=== PATIENT | female | born 1995 | race Caucasian/White ===

== ENCOUNTER → 2019-09-14 16:47 | Outpatient (CLI) | payer OTHER, SELFPAY ==
[2019-09-14 17:54] LABS: hCG Titer Quant., Serum 298 mIU/mL (1-3)
== END ==
PROVIDERS: PCP Preventive Medicine Occupational Medicine; Referring Provider Obstetrics & Gynecology; Visit Provider Obstetrics & Gynecology
DX: N91.2 Amenorrhea, unspecified (principal)
CPT/HCPCS: 36415; 84702

== ENCOUNTER → 2019-09-17 09:38 | Outpatient (CLI) | payer OTHER, SELFPAY ==
[2019-09-17 11:02] LABS: hCG Titer Quant., Serum 1140 mIU/mL (1-3)
== END ==
PROVIDERS: PCP Preventive Medicine Occupational Medicine; Referring Provider Obstetrics & Gynecology; Visit Provider Obstetrics & Gynecology
DX: O20.0 Threatened abortion (principal); Z3A.00 Weeks of gestation of pregnancy not specified
CPT/HCPCS: 36415; 84702

== ENCOUNTER → 2019-10-08 | Outpatient (CLI) | payer OTHER, SELFPAY ==
[2019-10-08 14:30] VITALS: BMI 33.4
[2019-10-08 18:37] LABS: Amphetamine Urine VISTA NEGATIVE (<1000 ng/mL); Barbiturate Urine VISTA NEGATIVE (< 200 ng/mL); Benzodiazepine Urine VISTA NEGATIVE (< 200 ng/mL); Cocaine Urine VISTA NEGATIVE (< 300 ng/mL); Ecstacy Urine VISTA NEGATIVE (< 500 ng/mL); Methadone Urine VISTA NEGATIVE (< 300 ng/mL); PCP Urine VISTA NEGATIVE (< 25 ng/mL); THC Urine VISTA NEGATIVE (< 50 ng/mL); Vista UDS pH Range 6
[2019-10-08 21:12] LABS: Chlamydia Trachomatis by PCR Negative (Negative); Neisserai gonorrhoeae by PCR Negative (Negative); Probe Check PASS; Sample Adequacy Control PASS; Specimen Processing Control PASS
[2019-10-12 16:48] LABS: HPV Reflexed? NOT INDICATED
== END | disposition home or self-care (01) ==
PROVIDERS: PCP Preventive Medicine Occupational Medicine; Referring Provider Nurse Practitioner Women's Health; Visit Provider Nurse Practitioner Women's Health
DX: Z34.00 Encounter for supervision of normal first pregnancy, unspecified trimester (principal); Z12.4 Encounter for screening for malignant neoplasm of cervix
CPT/HCPCS: 80307; 87086; 87491; 87591; 88175; G0145

== ENCOUNTER → 2019-10-09 16:35 | Outpatient (CLI) | payer OTHER, SELFPAY ==
[2019-10-08 14:30] VITALS: BMI 33.4
--- NOTE | 2019-10-09 16:37 | US_ITS ---
STUDY: FIRST TRIMESTER OBSTETRICAL ULTRASOUND REASON FOR EXAM: Female, 23 years old VIABILITY/ dates LMP: 08/17/2019 TECHNIQUE: Transvaginal TECHNICAL QUALITY: Adequate. PRIOR ULTRASOUND: None. FINDINGS: There is visualization of a single gestational sac in a normal intrauterine position. The mean sac diameter (MSD) measures 2.68 cm, indicating an estimated gestational age (EGA) of 7 weeks, 6 days. The gestational sac shape is within normal limits. There is a visualized yolk sac. The yolk sac measures 3.6 mm. The placenta is non-visualized. There is visualization of a live embryo. The crown-rump length (CRL) measures 1.82 cm, indicating an estimated gestational age (EGA) of 8 weeks, 3 days. There is demonstrated cardiac activity with a heart rate of 157 bpm. The estimated gestation age (EGA) by LMP is 7 weeks, 4 days. The estimated date of delivery (CAR[place]) by LMP is 05/23/2020. The estimated gestation age (EGA) by US is 8 weeks, 3 days. The estimated date of delivery ([place]) by US is 05/19/2020. The uterus measures 7.9 x 6.4 x 4.4 cm. There is no demonstrated uterine fibroid. The cervix is closed. There is a hypoechoic focus adjacent to the gestational sac measuring 1.3 x 1.8 x 0.6 cm consistent with small subchorionic bleed. The right ovary measures 2.9 x 2.3 x 1.7 cm. There is a right ovarian cyst measuring 2.0 x 1.8 x 1.2 cm. There is no visualized right adnexal mass or complex lesion. The left ovary measures 2.7 x 1.8 x 1.4 cm.. There is no left ovarian cyst. There is no visualized left adnexal mass or complex lesion. There is no fluid in the cul de sac. US/Init OB < 14Wks US IMPRESSION: Single viable intrauterine of approximately 8 weeks 3 days gestational age by crown-rump length measurement. Hypoechoic focus adjacent to the gestational sac measuring 1.3 x 1.8 x 0.6 cm consistent with small subchorionic bleed. Right ovarian cyst measuring 2.0 x 1.8 x 1.2 cm consistent with a corpus luteal cyst. Electronically Signed: Omer Elias MD at 17:23 EDT , Service support ,
== END ==
PROVIDERS: PCP Preventive Medicine Occupational Medicine; Referring Provider Obstetrics & Gynecology; Visit Provider Obstetrics & Gynecology
DX: Z34.90 Encounter for supervision of normal pregnancy, unspecified, unspecified trimester (principal)
CPT/HCPCS: 76801

== ENCOUNTER → 2019-11-08 15:43 | Outpatient (CLI) | payer SELFPAY ==
[2019-11-08 15:09] VITALS: BMI 33.4
[2019-11-08 16:32] LABS: Absolute Lymphocyte Count 2.42 X10^3/uL (0.83-4.51); Absolute Neutrophil Count 7.7 X10^3/uL (2.0-7.7); Basophil# 0.03 X10^3/uL; Basophil% 0.3 % (0-1); Eosinophils% 1.8 % (0-5); Hematocrit 38.7 % (37-47); Lymphocyte # 2.42 X10^3/ul (4.0); Lymphocyte % 21.7 % (19-41); Mean Corp Hgb Conc 33.6 g/dL (32-36); Mean Corpuscular Hgb 32.1 pg (27.0-32.0); Mean Corpuscular Volume 95.6 fL (81-99); Mean Platelet Vol. 10.1 fl (6.2-12.0); Monocyte# 0.78 X10^3/uL; NRBC Flagged by Analyzer 0 % (0-5); Neutrophil # 7.66 X10^3/uL (2.7-7.7); Neutrophil % 68.8 % (47-70); Platelet Count 234 K/mm3 (150-450); RBC Distribution Width SD 42.6 fl (35.1-43.9); Red Blood Count 4.05 M/mm3 (4.2-5.4); White Blood Count 11.1 K/mm3 (4.4-11.0)
[2019-11-09 09:07] LABS: HIV - WCH Non-Reactive (Nonreactive); Hepatitis B Surface Antigen Non-Reactive (Nonreactive); Hepatitis C Antibody Non-Reactive (Nonreactive); Rubella IgG 390.2 IU/mL
[2019-11-15 00:51] LABS: Rapid Plasmin Reagin (RPR) NONREACTIVE (NONREACTIVE)
== END ==
PROVIDERS: Nurse Practitioner Women's Health; PCP Preventive Medicine Occupational Medicine; Referring Provider Obstetrics & Gynecology; Visit Provider Obstetrics & Gynecology
DX: Z34.81 Encounter for supervision of other normal pregnancy, first trimester (principal)
CPT/HCPCS: 85025; 86592; 86703; 86762; 86803; 86850; 86900; 86901; 87340

== ENCOUNTER → 2020-02-25 13:50 | Outpatient (CLI) | payer OTHER, SELFPAY ==
[2020-01-28 16:03] VITALS: BMI 33.4
[2020-02-25 14:53] LABS: Absolute Lymphocyte Count 2.35 X10^3/uL (0.83-4.51); Absolute Neutrophil Count 7.6 X10^3/uL (2.0-7.7); Basophil# 0.03 X10^3/uL; Basophil% 0.3 % (0-1); Eosinophil# 0.13 X10^3/uL; Eosinophils% 1.2 % (0-5); Hematocrit 37.2 % (37-47); Hemoglobin 12.5 g/dL (12.0-15.0); Lymphocyte # 2.35 X10^3/ul (4.0); Mean Corp Hgb Conc 33.6 g/dL (32-36); Mean Corpuscular Hgb 33.2 pg (27.0-32.0); Mean Corpuscular Volume 98.7 fL (81-99); Mean Platelet Vol. 10.9 fl (6.2-12.0); Monocyte# 0.49 X10^3/uL; Monocyte% 4.6 % (0-10); NRBC Flagged by Analyzer 0 % (0-5); Neutrophil # 7.62 X10^3/uL (2.7-7.7); Neutrophil % 71.2 % (47-70); Platelet Count 221 K/mm3 (150-450); RBC Distribution Width CV 12.4 % (11.6-14.6); RBC Distribution Width SD 44.4 fl (35.1-43.9); Red Blood Count 3.77 M/mm3 (4.2-5.4); White Blood Count 10.7 K/mm3 (4.4-11.0)
[2020-02-25 15:11] LABS: Glucose Challenge Gest 1H 50g 127 mg/dL (70-140)
== END ==
PROVIDERS: PCP Preventive Medicine Occupational Medicine; Referring Provider Nurse Practitioner Women's Health; Visit Provider Nurse Practitioner Women's Health
DX: Z34.01 Encounter for supervision of normal first pregnancy, first trimester (principal)
CPT/HCPCS: 36415; 82950; 85025

== ENCOUNTER → 2020-05-02 | Outpatient (CLI) | payer OTHER, SELFPAY ==
[2020-05-02 15:02] VITALS: BMI 38.7
== END | disposition home or self-care (01) ==
LOC: LABSPEC 16:52
PROVIDERS: PCP Preventive Medicine Occupational Medicine; Referring Provider Obstetrics & Gynecology; Visit Provider Obstetrics & Gynecology
DX: Z34.93 Encounter for supervision of normal pregnancy, unspecified, third trimester (principal); Z3A.36 36 weeks gestation of pregnancy
CPT/HCPCS: 87081

== ENCOUNTER 2020-05-12 11:05 | Outpatient (CLI) | payer OTHER, SELFPAY ==
[2020-05-09 13:30] VITALS: BMI 38.7
[2020-05-12 11:11] VITALS: TEMP 36.3
[2020-05-12 11:13] VITALS: BP 133/90; PULSE 97
[2020-05-12 11:19] VITALS: BMI 39.1
[2020-05-12 11:32] VITALS: BP 121/77; PULSE 84
[2020-05-12 12:05] LABS: ROM Internal Control Test YES-OK TO RESULT pt. (Internal QC); ROM Patient Test Negative (Negative)
[2020-05-12 12:21] VITALS: BP 125/80; PULSE 81
--- NOTE | 2020-05-12 12:55 | OB.TRI.PN_ITS ---
Progress Notes Date of Service: 05/12/20 Progress Note: Patient presents for triage evaluation secondary to questionable loss of fluid with vaginal discharge FHT: 140 moderate variability reactive no decelerations category I tracing [place]: no Regular contractions Assessment and plan: False labor no rupture of membranes negative ROM plus reactive NST, reassuring maternal and status patient discharged to home to follow-up as scheduled. See problem list details for additional plan information. Laboratory Studies: Laboratory Tests 05/12/20 Range/Units 11:31 Vag Amniotic Fld Detect Negative (Negative) - Problem List (1) Intact amniotic membranes Status: Acute Multi Select Codes - Urinary/Genital Urinary/Genital CPT Codes: 88935-40 non-stress test Interp
== END 2020-05-12 12:55 | disposition home or self-care (01) ==
LOC: WPOUT 11:07 → WP 11:07
PROVIDERS: PCP Preventive Medicine Occupational Medicine; Referring Provider Obstetrics & Gynecology; Visit Provider Obstetrics & Gynecology
DX: O47.9 False labor, unspecified (principal); Z3A.00 Weeks of gestation of pregnancy not specified
CPT/HCPCS: 59025; 59050; 84112; 99218; G0378

== ENCOUNTER → 2020-05-12 13:54 | Outpatient (CLI) | payer OTHER, SELFPAY ==
[2020-05-09 13:30] VITALS: BMI 38.7
[2020-05-12 11:19] VITALS: BMI 39.1
--- NOTE | 2020-05-12 13:56 | US_ITS ---
HISTORY: SMALL FOR DATES ADDITIONAL HISTORY: None provided. CLINICAL DATIN weeks 3 days with CAROLINA 05/23/2020 COMPARISON: None TECHNIQUE: Obstetric sonography performed with transabdominal approach, grayscale and color Doppler imaging. FINDINGS: NUMBER: 1 HEART RATE: 127 BPM PRESENTATION: Cephalic PLACENTA: Posterior. AMNIOTIC FLUID: Normal KARIE 13.69 cm CERVIX: Not visualized. BIOMETRY: BPD: 8.88 cm, 35 weeks 6 days HC: 31.94 cm, 35 weeks 6 days AC:32.9 cm, 36 weeks 5 days FL: 7.09 cm, 36 weeks 2 days AUA: 36 weeks 2 days CAR[place]: 06/07/2020 EFW: 2999 g, 63rd percentile CI 79% FL/AC 21.6% FL/BPD 79.8% FL/HC 22.2% HC/AC 0.97 Anatomy US/OB Limited With Biometrics IMPRESSION: Single, live intrauterine gestation, as detailed. at 0552 Reported and signed by: Tricia England MD Electronically Signed: Tricia England MD at 5:52 EDT Tel , Service support ,
== END ==
PROVIDERS: PCP Preventive Medicine Occupational Medicine; Referring Provider Obstetrics & Gynecology; Visit Provider Obstetrics & Gynecology
DX: O26.843 Uterine size-date discrepancy, third trimester (principal); Z3A.00 Weeks of gestation of pregnancy not specified
CPT/HCPCS: 76816

== ENCOUNTER 2020-05-15 04:56 | Inpatient (IN) | payer OTHER, SELFPAY ==
[2020-05-15] VITALS (45 sets, daily range): BP systolic 104–156; BP diastolic 56–94; PULSE 58–97; RESP 18; TEMP 36.3–37.2; O2SAT 96–99; BMI 38.0
[2020-05-15 04:54] LABS: ROM Internal Control Test YES-OK TO RESULT pt. (Internal QC)
[2020-05-15 04:55] LABS: ROM Patient Test POSITIVE (Negative)
[2020-05-15] MEDS: Lactated Ringers 1,000 ML 50 ML IV (05:40)
[2020-05-15 05:49] LABS: Absolute Lymphocyte Count 2.52 X10^3/uL (0.83-4.51); Absolute Neutrophil Count 7.1 X10^3/uL (2.0-7.7); Basophil# 0.03 X10^3/uL; Basophil% 0.3 % (0-1); Eosinophil# 0.17 X10^3/uL; Eosinophils% 1.6 % (0-5); Hematocrit 41.5 % (37-47); Lymphocyte # 2.52 X10^3/ul (4.0); Lymphocyte % 23.7 % (19-41); Mean Corp Hgb Conc 33.7 g/dL (32-36); Mean Corpuscular Hgb 33.5 pg (27.0-32.0); Mean Corpuscular Volume 99.3 fL (81-99); Mean Platelet Vol. 11.8 fl (6.2-12.0); Monocyte# 0.81 X10^3/uL; Monocyte% 7.6 % (0-10); NRBC Flagged by Analyzer 0 % (0-5); Neutrophil # 7.07 X10^3/uL (2.7-7.7); Neutrophil % 66.5 % (47-70); Platelet Count 174 K/mm3 (150-450); RBC Distribution Width CV 13.1 % (11.6-14.6); RBC Distribution Width SD 47.5 fl (35.1-43.9); Red Blood Count 4.18 M/mm3 (4.2-5.4); White Blood Count 10.6 K/mm3 (4.4-11.0)
[2020-05-15] MEDS: Oxytocin 30 units/NS 500 ml 30 UNITS/500 ML IV.SOLN IV (07:30)
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
[2020-05-15] MEDS: fentaNYL 100 MCG/2 ML Ampul IV (11:07)
[2020-05-15] MEDS: Lactated Ringers 500 ML 999 ML IV (12:51)
[2020-05-15] MEDS: fentaNYL-bupivacaine (epidural) 100 ML BAG EPIDURAL (13:27)
[2020-05-15] MEDS: Lactated Ringers 1,000 ML 200 ML IV (15:55)
[2020-05-15] MEDS: Oxytocin 30 units/NS 500 ml 30 UNITS/500 ML IV.SOLN 334 UNITS IV (17:19)
--- NOTE | 2020-05-15 17:30 | PCM.OPRPT ---
Problem List (1) PROM (premature rupture of membranes) Status: Acute (2) 36 weeks gestation of Status: Acute Comment: COVID TESTING ORDERD 05/01/2020sc (3) Anxiety Status: Acute Comment: encouraged counseling, had chest pain with zoloft, celexa prescribed. (4) Influenza vaccination declined Status: Acute (5) Intact amniotic membranes Status: Acute (6) Status: Acute Qualifiers: Comment: low risk NIPT female, decline carrier and ntd screening. Anatomy/Echo US normal. (7) Supervision of high-risk Status: Acute Comment: PRR [place] 05/23/20 girl Dyan Spouse Sanjay (8) Tobacco use Status: Acute Comment: encouraged cessation. (9) Uterine size-date discrepancy, third trimester Status: Acute Comment: growth us ordered Vaginal Delivery Maternal Presentation: Spontaneous Rupture of Membranes srom Amniotic Fluid Description: Clear Final [place]: 05/23/20 Gestational age: 38 Weeks and 6 Days Date of Procedure: 05/15/20 Pre-Operative Diagnosis: prom Post-Operative Diagnosis: same Surgery/ Procedure Performed: Spontaneous Vaginal Delivery Type of Anesthesia: Epidural Description of Procedure: Patient began pushing and delivered the head in the [CATRACHITA] presentation. The head was delivered atraumatically . The anterior and posterior shoulders delivered without complication followed by the rest of the infant and the infant was placed on the maternal abdomen. Delayed cord clamping was employed for approximately 60 seconds. Cord was clamped and cut and gentle traction was applied to the cord and the placenta delivered spontaneously immediately following it was noted to be intact with three-vessel cord. The perineum and vagina were inspected and noted to have a first-degree perineal laceration that was repaired in the usual fashion with 3-0 Vicryl Rapide. EBL was [100 cc]. Patient and infant tolerated delivery well. Presentation: CATRACHITA Placental Delivery Description: Spontaneous Placenta Disposition: [facility] Estimated Blood Loss: 100 Infant A gender: Female Episiotomy Description: None Laceration: Perineal Extension/lac, 1st degree Medications given after delivery: IV Pitocin Complications: None Multi Select Codes - Urinary/Genital Urinary/Genital CPT Codes: 48309 Vaginal Delivery [facility]
[2020-05-15] MEDS: 0.9% Saline Lock 10 ML Syringe IV (19:48)
[2020-05-16] VITALS (11 sets, daily range): BP systolic 112–131; BP diastolic 59–86; PULSE 65–86; RESP 15–18; TEMP 36.1–37.3
[2020-05-16] MEDS: Naproxen 250 MG Tablet 500 MG PO (04:13)
[2020-05-16] MEDS: Citalopram 20 MG Tablet PO (10:01)
[2020-05-16] MEDS: Prenatal Vits Tablet 1 TABLET PO (10:01)
[2020-05-16] MEDS: Acetaminophen 500 MG Tablet 1000 MG PO (10:03)
--- NOTE | 2020-05-16 12:37 | DCINST_ITS ---
Discharge Diet: No Restrictions Discharge Activity: Return to Normal Activity, May not drive while taking narcotic pain medications., May Shower May resume sexual activity in: 4-6 weeks Call your doctor if your incision/area has: Continuous Slow Oozing, Sudden Increased Bleeding, Increased Pain/ Swelling, Increased Redness, Foul Smelling Discharge Additional Instructions: If you experience any of the following, contact your healthcare provider. * Bleeding that soaks a pad every hour for 2 hours * Fever 100.4 or higher * Unrelieved incision or abdominal pain * Swelling, redness, discharge or bleeding from your incision or episiotomy site * Your incision begins to separate * Problems urinating (including inability to urinate or burning while urinating). * Visual changes * Severe headache * Flu-like symptoms * Pain or redness in one of both of your breasts * Pain, warmth, tenderness or swelling in your legs, especially the calf area * Frequent nausea and vomiting * Symptoms of depression or anxiety If you experience any of the following, call 911 or go to the nearest Emergency Room. * Chest pain * Problems breathing * Seizure activity * Partial or complete paralysis of a body part, slurred speech, weakness or drooping of the face, or a sudden inability to walk or hold your balance Allergies/Adverse Reactions: Allergies No Known Allergies Allergy (Verified 05/15/20 04:50) Medications to take at Discharge prenat.vits,barry,[id number] 1 tab PO DAILY 10/08/19 Citalopram [Celexa] 20 mg PO DAILY 05/12/20 Please Follow Up With: Florina Dao MD - [phone] When: Call to make an appointment with your doctor in 6 weeks. If you had elevated Blood pressure or 4th degree laceration you will need to be seen in 2 weeks. Primary Care Physician: Denny Miles DO [Primary Care Provider] - Test Results: Test results from this visit will be discussed in further detail at your follow- up appointment, if applicable.
--- NOTE | 2020-05-16 12:37 | PCM.PN.OB ---
Patient Problems: Active and Suspected Problems (Last Reviewed 05/09/20 @ 13:25 by Arti Montiel) Intact amniotic membranes (Acute) PROM (premature rupture of membranes) (Acute) Uterine size-date discrepancy, third trimester (Acute) growth us ordered 36 weeks gestation of (Acute) COVID TESTING ORDERD 05/01/2020sc Influenza vaccination declined (Acute) Anxiety (Acute) encouraged counseling, had chest pain with zoloft, celexa prescribed. Supervision of high-risk (Acute) PRR [place] 05/23/20 girl Dyan Spouse Sanjay Tobacco use (Acute) encouraged cessation. (Acute) low risk NIPT female, decline carrier and ntd screening. Anatomy/Echo US normal. Subjective: Patient doing well without complaints. Tolerating PO. Ambulating and voiding without difficulty. breast feeding well. Denies chest pain, shortness of breath, calf pain/swelling, fevers, chills, lightheadedness. - Physical Exam Vitals/I&O's: Vital Signs Temp Pulse Resp BP Pulse Ox 98 F 76 15 123/73 H 98 05/16/20 08:37 05/16/20 11:25 05/16/20 08:37 05/16/20 11:25 05/15/20 19:57 Oxygen Delivery Method Room Air Weight: 201 lb Body Mass Index (BMI) 38.0 Intake and Output for Last 24 Hours 05/14/20 05/15/20 05/16/20 23:59 23:59 23:59 Intake Total 3621.39 / 3621.39 Output Total 1000 / 1000 1000 / 1000 Balance 2621.39 / 2621.39 -1000 / -1000 General: Alert, Oriented x3 Current Medications Acetaminophen (Acetaminophen 500 Mg Tablet) 1,000 mg PO Q8H PRN PRN PRN Reason: Pain Score 1-3 Last Admin: 05/16/20 10:03 Dose: 1,000 mg Documented by: Bisacodyl (Bisacodyl 10 Mg Suppository) 10 mg RECTAL UD PRN PRN Reason: If no BM Citalopram Hydrobromide (Citalopram 20 Mg Tablet) 20 mg PO DAILY ANGIE Last Admin: 05/16/20 10:01 Dose: 20 mg Documented by: Dibucaine (Dibucaine 30 Gm Tube) 1 applic TOPICAL TID PRN PRN; Protocol PRN Reason: Discomfort Hydrocortisone (Hydrocortisone 2.5% Crm) 1 applic TOPICAL TID PRN PRN; Protocol PRN Reason: Discomfort Methylergonovine Maleate (Methylergonovine 0.2 Mg/Ml Ampul) 0.2 mg IM X1 PRN PRN Reason: Excess bleeding/uterine atony Naproxen (Naproxen 250 Mg Tablet) 500 mg PO Q8H PRN PRN PRN Reason: Pain Score 1-3 Last Admin: 05/16/20 04:13 Dose: 500 mg Documented by: Ondansetron HCl (Ondansetron 4 Mg/2 Ml Vial) 4 mg IV Q4H PRN PRN PRN Reason: Nausea Oxycodone HCl (Oxycodone 5 Mg Tablet) 5 - 10 mg PO Q4H PRN PRN PRN Reason: Pain Score 4-10 Multivit/Folic Acid/Iron ( Vits Tablet) 1 tablet PO DAILY@1200 ANGIE Last Admin: 05/16/20 10:01 Dose: 1 tablet Documented by: Senna/Docusate Sodium (Senna/Docusate Sodium 1 Tablet) 1 - 2 tablet PO DAILY PRN PRN PRN Reason: Constipation Simethicone (Simethicone 80 Mg Tablet) 80 mg PO PCHS PRN PRN Reason: Indigestion/Stomach pain Sodium Chloride (0.9% Saline Lock 10 Ml Syringe) 5 - 15 ml IV UD PRN PRN Reason: SALINE FLUSH Last Admin: 05/15/20 19:48 Dose: 10 ml Documented by: Medical Necessity - Tobacco Use Smoking Status: Current some day smoker Assessment/Plan All Active Problems (Last Reviewed 05/09/20 @ 13:25 by Arti Montiel) Intact amniotic membranes (Acute) PROM (premature rupture of membranes) (Acute) Uterine size-date discrepancy, third trimester (Acute) 36 weeks gestation of (Acute) Influenza vaccination declined (Acute) Anxiety (Acute) Supervision of high-risk (Acute) Tobacco use (Acute) (Acute) Subchorionic hematoma (Resolved) s/p PPD # 1 1. routine post delivery care 2. breast feeding- support given 3. rh positive 4. rubella immune
--- NOTE | 2020-05-16 12:37 | PCM.DCVAG ---
Discharge Diet: No Restrictions Discharge Activity: Return to Normal Activity, May not drive while taking narcotic pain medications., May Shower May resume sexual activity in: 4-6 weeks Call your doctor if your incision/area has: Continuous Slow Oozing, Sudden Increased Bleeding, Increased Pain/ Swelling, Increased Redness, Foul Smelling Discharge Additional Instructions: If you experience any of the following, contact your healthcare provider. Bleeding that soaks a pad every hour for 2 hours Fever 100.4 or higher Unrelieved incision or abdominal pain Swelling, redness, discharge or bleeding from your incision or episiotomy site Your incision begins to separate Problems urinating (including inability to urinate or burning while urinating). Visual changes Severe headache Flu-like symptoms Pain or redness in one of both of your breasts Pain, warmth, tenderness or swelling in your legs, especially the calf area Frequent nausea and vomiting Symptoms of depression or anxiety If you experience any of the following, call 911 or go to the nearest Emergency Room. Chest pain Problems breathing Seizure activity Partial or complete paralysis of a body part, slurred speech, weakness or drooping of the face, or a sudden inability to walk or hold your balance Allergies/Adverse Reactions: Allergies No Known Allergies Allergy (Verified 05/15/20 04:50) Medications to take at Discharge prenat.vits,barry,[id number] 1 tab PO DAILY 10/08/19 Citalopram [Celexa] 20 mg PO DAILY 05/12/20 Please Follow Up With: Florina Dao MD - [phone] When: Call to make an appointment with your doctor in 6 weeks. If you had elevated Blood pressure or 4th degree laceration you will need to be seen in 2 weeks. Primary Care Physician: Denny Miles DO [Primary Care Provider] - Test Results: Test results from this visit will be discussed in further detail at your follow-up appointment, if applicable.
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
== END 2020-05-16 19:40 | disposition home or self-care (01) | DRG 807 ==
LOC: WPOUT 04:58 → WP 04:58
PROVIDERS: Admitting Provider Obstetrics & Gynecology; PCP Preventive Medicine Occupational Medicine; Visit Provider Obstetrics & Gynecology
DX: O42.92 Full-term premature rupture of membranes, unspecified as to length of time between rupture and onset of labor (principal); Z37.0 Single live birth; O26.843 Uterine size-date discrepancy, third trimester; O70.0 First degree perineal laceration during delivery; O99.344 Other mental disorders complicating childbirth; F41.9 Anxiety disorder, unspecified; O99.334 Smoking (tobacco) complicating childbirth; F17.200 Nicotine dependence, unspecified, uncomplicated; Z3A.38 38 weeks gestation of pregnancy; Z28.21 Immunization not carried out because of patient refusal
CPT/HCPCS: 59025; 59050; 84112; 85025; 86850; 86900; 86901; 99218; J7120; A4216; G0378

== ENCOUNTER 2020-12-24 12:04 | Observation (INO) | payer OTHER, SELFPAY ==
[2020-07-03 16:04] VITALS: BMI 36.0
[2020-12-24] VITALS (12 sets, daily range): BP systolic 101–165; BP diastolic 62–95; PULSE 61–101; RESP 14–18; TEMP 36.1–36.7; O2SAT 96–100; BMI 34.5; BMI 37.5
[2020-12-24 12:29] LABS: Absolute Lymphocyte Count 3.08 X10^3/uL (0.83-4.51); Absolute Neutrophil Count 6.8 X10^3/uL (2.0-7.7); Basophil# 0.05 X10^3/uL; Basophil% 0.5 % (0-1); Eosinophil# 0.22 X10^3/uL; Hemoglobin 13.9 g/dL (12.0-15.0); Lymphocyte # 3.08 X10^3/ul (0.83-4.51); Lymphocyte % 28.5 % (19-41); Mean Corp Hgb Conc 33.1 g/dL (32-36); Mean Corpuscular Hgb 31.7 pg (27.0-32.0); Mean Corpuscular Volume 95.9 fL (81-99); Mean Platelet Vol. 10.9 fl (6.2-12.0); Monocyte# 0.59 X10^3/uL; Monocyte% 5.5 % (0-10); NRBC Flagged by Analyzer 0 % (0-5); Neutrophil # 6.82 X10^3/uL (2.7-7.7); Neutrophil % 63.1 % (47-70); Platelet Count 267 K/mm3 (150-450); RBC Distribution Width CV 12.1 % (11.6-14.6); RBC Distribution Width SD 43.2 fl (35.1-43.9); Red Blood Count 4.38 M/mm3 (4.2-5.4); White Blood Count 10.8 K/mm3 (4.4-11.0)
[2020-12-24] MEDS: 0.9% Normal Saline 1,000 ML 1000 ML IV (12:35)
[2020-12-24] MEDS: Morphine 4 MG/ML Syringe IV ×2 (12:36→15:02)
[2020-12-24] MEDS: Ondansetron 4 MG/2 ML Vial IV ×2 (12:36→15:07)
--- NOTE | 2020-12-24 12:43 | EDS_ITS ---
HPI HPI - GI History of Present Illness Chief Complaint: Abd Pain Narrative Narrative: Patient reports that she has had lower quadrant abdominal pain days ago. Is much worse today. Is a sharp pain that is 10-10 at worst 9-10 currently. Is worsened by sitting and bending over. Relieved by nothing. She has had nausea and poor appetite. No vomiting. She reports she had 1 episode of diarrhea. No blood in her stools or black tarry stools. No dysuria freque ncy. She finished her menstrual cycle 3 days ago. She denies any vaginal bleeding or discharge. PFSH PFSH Medical History Non-smoker Home Medications desogestrel 0.15 mg-ethinyl estradiol 0.03 mg tablet 1 tab PO QDAY #28 tab 07/03/20 [Rx Last Taken Unknown] Allergy/AdvReac Type Severity Reaction Status Date / Time No Known Allergies Allergy Verified 12/24/20 12:07 Family History Mother Diabetes Heart disease Grandfather Myocardial infarction Social History number of children: 0 current occupational status: employed current occupation: [employer] Smoking Status: Never smoker alcohol intake: never substance use type: does not use caffeine: Yes Type: coffee Number of servings: 2 seatbelt use: always do you feel safe at home: Yes 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[employer] ROS ED Constitutional Constitutional ED: Denies chills, fever(s) or sweats Eyes Eyes: Denies change in vision ENT ENT ED: Denies sore throat Cardiovascular Cardiovascular: Denies chest pain Respiratory/Chest Respiratory/Chest: Denies cough, dyspnea or dyspnea on exertion Gastrointestinal Gastrointestinal: Reports abdominal pain, diarrhea and nausea; Denies melena or vomiting Genitourinary Genitourinary ED: Denies dysuria or urinary frequency Musculoskeletal Musculoskeletal: Denies myalgias Integumentary Denies rash Neurologic Neurologic: Denies headache(s), paresthesias or weakness EXAM Physical Exam Const Vital Signs: 12/24/20 12:05 Temperature 98.1 F Temperature Source Temporal Pulse Rate 101 H Respiratory Rate 16 Blood Pressure 165/84 H Blood Pressure Mean 111 Pulse Ox 99 Oxygen Delivery Method Room Air Positive well nourished and well developed General Appearance ED: well developed HEENT Reports normocephalic and head/scalp atraumatic Eyes PERRL Neck no lymphadenopathy, supple and no JVD General: Negative for tenderness Resp normal respiratory effort and clear to auscultation bilaterally Cardio regular rate, regular rhythm and no murmurs GI normal to inspection, nondistended, normoactive bowel sounds and non-distended GI Narrative: Moderate to palpation the right lower quadrant. No guarding, rebound, or peritoneal signs. Auscultation: normoactive bowel sounds Palpation: soft Back/Spine Back/Spine Narrative: Nontender. Extremity General Extremety ED: Negative for edema or tenderness General Extremity: Negative for edema Neuro oriented x3, CN's II-XII intact bilaterally and no sensory deficits noted Sensorium / Orientation: alert Motor Exam: strength 5/5 throughout Psych mental status grossly normal Skin no rashes or lesions noted MDM MDM Lab Data Labs: Laboratory Results - last 24 hr 12/24/20 12/24/20 12/24/20 12:22 12:22 12:22 WBC 10.8 RBC 4.38 Hgb 13.9 Hct 42.0 MCV 95.9 MCH 31.7 MCHC 33.1 RDW Std Deviation 43.2 RDW Coeff of Nicholas 12.1 Plt Count 267 MPV 10.9 Immature Gran % (Auto) 0.400 Neut % (Auto) 63.1 Lymph % (Auto) 28.5 Dupage % (Auto) 5.5 Eos % (Auto) 2.0 Baso % (Auto) 0.5 Absolute Neuts (auto) 6.8 Absolute Lymphs (auto) 3.08 Nucleated RBC % 0 Sodium 136 Potassium 4.6 Chloride 104 Carbon Dioxide 24.0 Anion Gap 8 BUN 11 Creatinine 0.82 Estim Creat Clear Calc 77.76 Est GFR (MDRD) Af Amer 107 Est GFR (MDRD) Non-Af 89 BUN/Creatinine Ratio 13.4 Glucose 81 Calcium 9.6 Total Bilirubin 0.40 AST 36 ALT 25 Alkaline Phosphatase 77 Total Protein 8.3 H Albumin 3.7 Globulin 4.6 H Albumin/Globulin Ratio 0.8 L Serum , Qual NEGATIVE Radiography Diagnostic Testing: Radiology Impression Abdomen/Pelvis CT 12/24/20 13:50 IMPRESSION: Findings suggestive of thickening and slight dilatation of the appendix with increased markings in the surrounding peritoneal fat suggestive of appendicitis. Electronically Signed: Valeriano Cooper MD at 14:22 EDT , Service support , Treatment and Re-Evaluation Comments:: Emergency department course: Patient had an IV placed. She was given a liter normal saline. She was given morphine and Zofran IV. She is resting more comfortably. Patient was given a dose of Zosyn IV. Treatment plan: Patient will be discussed with Dr. Easley and admitted for further evaluation and treatment. Discharge Plan Triage Chief Complaint: Abd Pain ED Provider: Bryce Shin Dx/Rx/DC Orders Clinical Impression: Acute appendicitis Prescriptions: No Action desogestrel-ethinyl estradiol [Apri] 0.15-0.03 mg tablet 1 tab PO QDAY Qty: 28 RF: 12 Primary Care Provider: Denny Miles Referrals: Denny Miles DO [Primary Care Provider] -
[2020-12-24 12:54] LABS: ALB/GLOB Ratio 0.8 RATIO (0.9-2.4); AST(SGOT) 36 U/L (15-37); Alanine Aminotransfer ALT/SGPT 25 U/L (13-56); Albumin, Serum 3.7 g/dL (3.2-5.0); Alkaline Phosphatase 77 U/L (45-117); Anion Gap 8 (5-15); BUN 11 mg/dL (7-18); BUN/Creat Ratio 13.4 RATIO (10-20); Calcium,Total 9.6 mg/dL (8.5-10.1); Chloride 104 mmol/L (98-107); Creatinine, Serum 0.82 mg/dL (0.55-1.02); EST Glomerular Filtration Rate 89 mL/min (>60); Est Glom Filt Rate - Afr Amer 107 mL/min (>60); Estimated Creatinine Clearance 77.76 ml/min; Globulin 4.6 g/dL (2.2-4.2); Glucose 81 mg/dL (74-106); Potassium 4.6 mmol/L (3.5-5.1); Protein, Total 8.3 g/dL (6.4-8.2); Sodium Level 136 mmol/L (136-145)
[2020-12-24 12:56] LABS: Internal QC Validated? YES +Cl - CLEAR BKGD; Pregnancy, Serum, hCG Quali. NEGATIVE Negative
--- NOTE | 2020-12-24 13:50 | CT_ITS ---
STUDY: CT ABDOMEN AND PELVIS WITH CONTRAST REASON FOR EXAM: Female, 25 years old. RLQ pain -- IV PO Contrast RADIATION DOSAGE (If Supplied By Facility): CTDIvol = ( 17.86 ) mGy, DLP = ( 1015.21 ) mGycm TECHNIQUE: Transaxial images were obtained from the dome of the diaphragm to the symphysis pubis without oral contrast. Oral and amp; IV Gastrografin and amp; 100mL Isovue-300 was administered. Sagittal and coronal images were reconstructed. Individualized dose optimization techniques were used for this CT. COMPARISON: None. FINDINGS: The visualized lung bases are unremarkable. The visualized portions of the heart are within normal limits. Normal liver. Normal gallbladder and extrahepatic biliary system. Normal spleen. Normal pancreas. Normal bilateral adrenal glands. Normal right kidney. Normal left kidney. Normal visualized stomach. Normal small intestine. Normal colon. There is a tubular, thick-walled appendix (>7mm), consistent with acute appendicitis. Small lymph nodes are seen in the mesenteric fat in the right lower quadrant suggest mesenteric ischemia. Normal abdominal aorta. Normal inferior vena cava. Normal retroperitoneum. Normal urinary bladder. Trace amount of free fluid is seen in the cul-de-sac. Normal abdominal wall. Normal osseous structures. CT/Abdomen/Pelvis WITH Contrast IMPRESSION: Findings suggestive of thickening and slight dilatation of the appendix with increased markings in the surrounding peritoneal fat suggestive of appendicitis. Electronically Signed: Valeriano Cooper MD at 14:22 EDT , Service support ,
--- NOTE | 2020-12-24 14:58 | PCM.HP.STD ---
HPI - General HPI Narrative JILL BUSTILLO, is a 25 F who presents to the ER due to right lower quadrant pain. Patient states she did have some discomfort that woke her up Tuesday morning. However patient states the pain got a lot worse at 9 AM this morning in the right lower quadrant and continues to get worse. Patient has had nausea and vomiting did have some looser stools. Patient has never had any abdominal surgeries. CT abdomen pelvis did show thickened appendix along with some inflammation or around the appendix consistent with acute appendicitis. Patient's white blood cell count is within normal limits. Patient did get Zosyn IV in the ER. [facility] Medical History Non-smoker Home Medications desogestrel 0.15 mg-ethinyl estradiol 0.03 mg tablet 1 tab PO QDAY #28 tab 07/03/20 [Rx Last Taken Unknown] Allergy/AdvReac Type Severity Reaction Status Date / Time No Known Allergies Allergy Verified 12/24/20 12:07 Family History Mother Diabetes Heart disease Grandfather Myocardial infarction no surgical history Social History number of children: 0 current occupational status: employed current occupation: [employer] Smoking Status: Never smoker alcohol intake: never substance use type: does not use caffeine: Yes Type: coffee Number of servings: 2 seatbelt use: always do you feel safe at home: Yes 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 [employer] Vital Signs Vital Signs Vital Signs: 12/24/20 12:05 Temperature 98.1 F Temperature Source Temporal Pulse Rate 101 H Respiratory Rate 16 Blood Pressure 165/84 H Blood Pressure Mean 111 Pulse Ox 99 Oxygen Delivery Method Room Air Weight Weight: 183 lb Body Mass Index (BMI) 34.5 Physical Exam Const alert, oriented x3 and no apparent distress HEENT normocephalic and head/scalp atraumatic Resp normal respiratory effort Cardio regular rate GI soft to palpation; Negative for non-distended Palpation: tender RLQ and other Other Details: Mild Rovsing sign ; Negative for guarding Extremity no clubbing, cyanosis or edema Neuro CN's II-XII intact bilaterally Psych mental status grossly normal Lab / Micro Data Result Diagrams: 12/24/20 12:22 12/24/20 12:22 Labs: Laboratory Results - last 24 hr 12/24/20 12/24/20 12/24/20 12:22 12:22 12:22 WBC 10.8 RBC 4.38 Hgb 13.9 Hct 42.0 MCV 95.9 MCH 31.7 MCHC 33.1 RDW Std Deviation 43.2 RDW Coeff of Nicholas 12.1 Plt Count 267 MPV 10.9 Immature Gran % (Auto) 0.400 Neut % (Auto) 63.1 Lymph % (Auto) 28.5 Storey % (Auto) 5.5 Eos % (Auto) 2.0 Baso % (Auto) 0.5 Absolute Neuts (auto) 6.8 Absolute Lymphs (auto) 3.08 Nucleated RBC % 0 Sodium 136 Potassium 4.6 Chloride 104 Carbon Dioxide 24.0 Anion Gap 8 BUN 11 Creatinine 0.82 Estim Creat Clear Calc 77.76 Est GFR (MDRD) Af Amer 107 Est GFR (MDRD) Non-Af 89 BUN/Creatinine Ratio 13.4 Glucose 81 Calcium 9.6 Total Bilirubin 0.40 AST 36 ALT 25 Alkaline Phosphatase 77 Total Protein 8.3 H Albumin 3.7 Globulin 4.6 H Albumin/Globulin Ratio 0.8 L Serum , Qual NEGATIVE Radiology Impression Abdomen/Pelvis CT 12/24/20 13:50 IMPRESSION: Findings suggestive of thickening and slight dilatation of the appendix with increased markings in the surrounding peritoneal fat suggestive of appendicitis. Electronically Signed: Valeriano Cooper MD at 14:22 EDT , Service support , Assessment & Plan Assessment/Plan (1) Acute appendicitis: PLAN: 1. Discussed procedure laparoscopic appendectomy, possible open, possible bowel resection along with the risk but not limited to bleeding, infection/abscess, injury to another organ (small bowel, colon, etc.), adhesion, hernia at incision sites, and anesthesia. Patient and her no further questions this time. Anais Easley M.D. Pager: [phone] [facility] [address] [place] [address], [address] [place] [id number] Office: [phone] Procedure Criteria Type of Procedure Procedure Type: Elective Elective Risks - COVID COVID Risk Discussion: The surgeon/proceduralist and patient have discussed in detail the risk of exposure to and/or potential harm posed by the COVID-19 virus with having a surgery/procedure at this time versus the risk of delaying the surgery/procedure. It is not possible to know either the risk of delaying the surgery or procedure or chance of getting an infection with perfect accuracy, but a joint decision was made between the patient and the surgeon/proceduralist to proceed at this time with the scheduled surgery/procedure as indicated on the consent form.
[2020-12-24] MEDS: 0.9% Normal Saline 1,000 ML 120 ML IV ×2 (15:45→17:38)
--- NOTE | 2020-12-24 16:00 | APP_PTH ---
PATIENT: JILL BUSTILLO LOC: [facility] U#:[id number] AGE/SX: 25/F ROOM: [facility] RE12/24/[address]: Dr. Anais Easley MD : 1995 BED: 1 DIS: 12/25/2020 SPEC #: [id number] RECD: 12/25/20 10:22 STATUS: STEFFEN REQ #: [id number] SARA: 12/24/20 16:[address]: Anais Easley DEPT: SURGICAL PATHOLOGY RECD BY: Denies Corral ENTERED: 12/25/20 11:06 SP TYPE: APPENDIX OTHR DR: Dr. Denny Miles, DO Tissues: Appendix, NOS Procedures: Surgery Specimen Level III HEADER OPERATION: Laparoscopic appendectomy PRE-OP DIAGNOSIS: Acute appendicitis TISSUE SUBMITTED: Appendix MICROSCOPIC DIAGNOSIS Appendix, appendectomy: Acute appendicitis and periappendicitis. See comment. SELENA:pk 12/26/2020 COMMENT Focal minimal diverticular changes are also noted at the tip of the appendix. MICROSCOPIC DESCRIPTION Slides are reviewed. GROSS DESCRIPTION Received in fixative is one container labeled with the patient's name and designated appendix. The specimen consists of a C-shaped appendix measuring 8 cm in length and up to 1 cm in diameter. The attached periappendiceal adipose tissue measures up to 1.5 cm in width. The serosa is congested. No obvious perforation is identified. The lumen contains fecal material. No fecalith is identified. Technical Supervisor sections are submitted in one cassette. / SJ:rg 12/25/20 TC:2 [facility]: [id number]
[2020-12-24] MEDS: Bupivacaine Mpf 0.5% 30 ML VIAL (16:09)
--- NOTE | 2020-12-24 16:53 | OP.PCM_ITS ---
Report of Operation Date of Procedure: 12/24/20 Pre-Operative Diagnosis: Acute appendicitis Post-Operative Diagnosis: Same Surgery/Procedure Performed:: Laparoscopic appendectomy Surgeon: Anais Easley Type of Anesthesia: General/Supplemental Anesthesiologist: Garcia Perez Special Medications: Zosyn IV given in ER for acute appendicitis Estimated Blood Loss (mL): < 10 cc Fluids Replaced: Per anesthesia Description of Procedure: Indications: 25-year-old female presented to the ER wi th new increase right lower quadrant pain this morning. On workup she was found to have acute appendicitis on CT and a leukocytosis of 10.8. Patient was started on antibiotics in the ER for acute appendicitis-Zosyn IV Description of the procedure: The patient was placed on operating table in supine position. General anesthesia was induced. A timeout was completed verifying correct patient, procedure, position and special equipment prior to beginning procedure. Abdomen was prepped and draped in usual sterile fashion. Incision was made in the natural skin line above the umbilicus with a 15 blade scalpel. The fascia was elevated and incised. Entry into the peritoneum was confirmed visually and no bowel was noted in the vicinity of the incision. The Freeman trocar was placed under direct vision. Abdomen insufflated with a pressure of 12-15 mmHg. Patient tolerated insertion well. The scope was inserted and the abdomen inspected. No injuries from initial trocar placement were noted. Minimal amount of fluid was seen in the right lower quadrant. An direct visualization 2 -5 mm trocars were placed one above the symphysis pubis and below the hairline and one in the left lower quadrant lateral to the rectus muscle. Care is taken to avoid injury to the bladder and inferior epigastric vessels. The table was placed in Trendelenburg position with the right side elevated. The appendix was grasped with atraumatic grasper and elevated. It was noted to be inflamed. A window was developed in the mesoappendix at the point between the base of the appendix and the cecum. An endoscopic 45 mm linear cutting stapler blue load was then used to divide and staple the base of the appendix. Harmonic was used to divide the mesoappendix. The appendix was withdrawn into the Freeman trocar after being placed endoscopically retrieval bag. Appendix was sent to pathology. The appendiceal stump was then irrigated and hemostasis was assured. Fluid was suctioned no other pathology was identified. Secondary trochars were removed under direct visualization. No bleeding was noted trocar sites. The laparoscope withdrawn and the umbilical trocar removed. The abdomen was allowed to collapse. Local anesthesia of 26 mL of 0.5% Marcaine was used at the incision sites. The umbilical trocar site was closed with the [id number] 0 Vicryl suture. The skin was closed up to clear sutures of 4-0 Monocryl and Steri-Strips. The patient was extubated. The patient tolerated the procedure well and was taken to the postanesthesia care unit in satisfactory condition. Complications None
[2020-12-24] MEDS: Ketorolac 15 MG/ML Vial IV (18:05)
[2020-12-24] MEDS: oxyCODONE 5 MG Tablet PO (21:33)
[2020-12-25] MEDS: Ketorolac 15 MG/ML Vial IV ×2 (00:07→06:03)
[2020-12-25] MEDS: DiphenhydrAMINE 25 MG Capsule PO (00:08)
[2020-12-25] MEDS: 0.9% Saline Lock 10 ML Syringe IV ×2 (00:08→06:04)
[2020-12-25 02:30] VITALS: BP 103/63; PULSE 58; RESP 18; TEMP 36.3; O2SAT 98
[2020-12-25] MEDS: oxyCODONE 5 MG Tablet PO (06:03)
[2020-12-25 06:07] VITALS: BP 92/57; PULSE 50; RESP 16; TEMP 36.2; O2SAT 98
--- NOTE | 2020-12-25 08:09 | PCM.PN.SRG ---
Subjective Subjective Patient's right lower quadrant pain has resolved since surgery. Patient's ambulating, tolerating diet pain control Objective Data Objective Data Vital Signs: Vital Signs Temp Pulse Resp BP Pulse Ox 97.2 F L 50 L 16 92/57 L 98 12/25/20 06:07 12/25/20 06:07 12/25/20 06:07 12/25/20 06:07 12/25/20 06:07 Oxygen Delivery Method Room Air Weight: 198 lb 13.711 oz Body Mass Index (BMI) 37.5 Intake & Output: Intake and Output for Last 24 Hours 12/23/20 12/24/20 12/25/20 23:59 23:59 23:59 Intake Total 2264 / 2264 Balance 2264 / 2264 Lab / Micro Data Result Diagrams: 12/24/20 12:22 12/24/20 12:22 Labs: Laboratory Results - last 24 hr 12/24/20 12/24/20 12/24/20 12:22 12:22 12:22 WBC 10.8 RBC 4.38 Hgb 13.9 Hct 42.0 MCV 95.9 MCH 31.7 MCHC 33.1 RDW Std Deviation 43.2 RDW Coeff of Nicholas 12.1 Plt Count 267 MPV 10.9 Immature Gran % (Auto) 0.400 Neut % (Auto) 63.1 Lymph % (Auto) 28.5 [place] % (Auto) 5.5 Eos % (Auto) 2.0 Baso % (Auto) 0.5 Absolute Neuts (auto) 6.8 Absolute Lymphs (auto) 3.08 Nucleated RBC % 0 Sodium 136 Potassium 4.6 Chloride 104 Carbon Dioxide 24.0 Anion Gap 8 BUN 11 Creatinine 0.82 Estim Creat Clear Calc 77.76 Est GFR (MDRD) Af Amer 107 Est GFR (MDRD) Non-Af 89 BUN/Creatinine Ratio 13.4 Glucose 81 Calcium 9.6 Total Bilirubin 0.40 AST 36 ALT 25 Alkaline Phosphatase 77 Total Protein 8.3 H Albumin 3.7 Globulin 4.6 H Albumin/Globulin Ratio 0.8 L Serum , Qual NEGATIVE Micro: Microbiology 12/24/20 15:12 Interface Orders SARS-CoV-2 Antigen (Rapid) - Final Radiography Diagnostic Testing: Radiology Impression Abdomen/Pelvis CT 12/24/20 13:50 IMPRESSION: Findings suggestive of thickening and slight dilatation of the appendix with increased markings in the surrounding peritoneal fat suggestive of appendicitis. Electronically Signed: Valeriano Cooper MD at 14:22 EDT , Service support , Physical Exam Resp normal respiratory effort Cardio regular rate GI GI Narrative: Abdomen: Soft, nondistended, tender near incision's dressed clean dry and intact, no peritoneal signs Assessment & Plan Assessment/Plan (1) S/P laparoscopic appendectomy: PLAN: Patient is tolerating diet, pain controlled, ambulating, incisions healing well. Okay to ME home Anais Easley M.D. Pager: [phone] [facility] [address] [place] [address], [address] [place] [address] Office: [phone]
--- NOTE | 2020-12-25 08:10 | EX.PCM.DISCH ---
Discharge Instructions Diet Discharge Diet: Light diet - advance as tolerated Activity Discharge Activity: May not drive while taking narcotic pain medications. May shower in (days): 1 Lifting Restrictions: no lifting >20 lbs x 2 wks, no strenuous exercise for 4 wks Additional Activity Instructions:: Off work until f/u appt in 2 weeks Dressing / Incision Call your doctor if your incision/area has: Continuous Slow Oozing, Sudden Increased Bleeding, Increased Pain/ Swelling, Increased Redness, Foul Smelling Discharge and Swelling at the incision site Call your doctor if you observe: Fever of 101 or Higher Remove Dressing in: 2 days Cleanse incision/area with: Soap & Water Additional Dressing/Incision Instructions:: Steri-Strips will fall off in 7 to 10 days, if they do not fall off okay to remove after 10 days. Follow Up Care Please Follow Up With: Anais Easley MD When: Call the office for a follow-up appointment 2 weeks; after 5 PM and on the weekends call [phone] with any concerns. Test Results: Test results from this visit will be discussed in further detail at your follow-up appointment, if applicable. Discharge Plan Admission Admit Date/Time: 12/24/20 15:43 Attending Provider: Anais Easley Primary Care Provider: Denny Miles Instructions Additional Instructions / Restrictions: Okay to take ibuprofen 400-600 mg PO q6hr PRN along with the Percocet. Avoid Tylenol since there is already Tylenol in the Percocet. Take all pain meds with food. Percocet can cause constipation recommend taking daily stool softener (i.e. Colace/docusate) while taking the pain meds. Recommend starting some MiraLAX in 1 to 2 days if no bowel movement. If still no bowel movement the following day recommend taking magnesium citrate half the bottle and waiting 4-6 hours if still no results take the other half the bottle. Discharge Orders/Prescriptions Prescriptions: New oxycodone-acetaminophen [Percocet] 5-325 mg tablet 1 - 2 tab PO Q6H PRN (Reason: pain) 3 Days Qty: 15 RF: 0 Continued desogestrel-ethinyl estradiol [Apri] 0.15-0.03 mg tablet 1 tab PO QDAY Qty: 28 RF: 12 Referrals / Follow Up: Denny Miles DO [Primary Care Provider] - Disposition Disposition (needs filled in before D/C Order can be placed): Home, self care
[2020-12-25 09:38] VITALS: BP 102/58; PULSE 79; RESP 12; TEMP 36.6; O2SAT 98
--- NOTE | 2020-12-25 09:52 | PHA.DC.MC ---
Pharmacy Service has performed discharge medication reconciliation and counseling for this patient. The patient was counseled on the following discharge medications and changes in medications for homegoing were reviewed. 1. PERCOCET The Reason for Use, instructions for use, and potential side effects were reviewed for all new medications. The patient's questions regarding all of their medications were answered. The patient was able to verbally demonstrate an understanding of their discharge medications. Home Medications desogestrel-ethinyl estradiol [Apri] 1 tab PO QDAY 12/25/20 oxycodone-acetaminophen [Percocet] 1 - 2 tab PO Q6H PRN 3 Days #15 tab 12/25/20 The patient's discharge medication list was reviewed for discrepancies and discrepancies were resolved.
[2020-12-25] MEDS: Acetaminophen 325 MG Tablet 650 MG PO (10:04)
== END 2020-12-25 08:12 | disposition home or self-care (01) ==
LOC: ED 14:57 → PCU 15:50
PROVIDERS: Admitting Provider Surgery; Emergency Provider Emergency Medicine; PCP Preventive Medicine Occupational Medicine; Visit Provider Surgery
PROC: 0DTJ4ZZ Resection of Appendix, Percutaneous Endoscopic Approach (ICD-10-PCS; CPT 44970; principal; 2020-12-24 15:40)
DX: K35.80 Unspecified acute appendicitis (principal)
CPT/HCPCS: 44970; 74177; 80053; 84703; 85025; 87426; 88304; 96374; 96375; 96376; 99218; 99251; 99284; J7030; Q9967; A4216; G0378; G0463; J2405

== ENCOUNTER 2021-11-18 07:22 | Outpatient (CLI) | payer SELFPAY ==
[2021-11-17 15:50] LABS: Amphetamine Urine VISTA NEGATIVE (<1000 ng/mL); Barbiturate Urine VISTA NEGATIVE (< 200 ng/mL); Benzodiazepine Urine VISTA NEGATIVE (< 200 ng/mL); Cocaine Urine VISTA NEGATIVE (< 300 ng/mL); Ecstacy Urine VISTA NEGATIVE (< 500 ng/mL); Methadone Urine VISTA NEGATIVE (< 300 ng/mL); PCP Urine VISTA NEGATIVE (< 25 ng/mL); THC Urine VISTA NEGATIVE (< 50 ng/mL); Vista UDS pH Range 6
[2021-11-18 14:58] LABS: Absolute Lymphocyte Count 2.49 X10^3/uL (0.83-4.51); Absolute Neutrophil Count 5.6 X10^3/uL (2.0-7.7); Basophil# 0.03 X10^3/uL; Basophil% 0.3 % (0-1); Eosinophil# 0.11 X10^3/uL; Eosinophils% 1.3 % (0-5); Hematocrit 37.9 % (37-47); Hemoglobin 12.8 g/dL (12.0-15.0); Lymphocyte # 2.49 X10^3/ul (0.83-4.51); Lymphocyte % 28.7 % (19-41); Mean Corp Hgb Conc 33.8 g/dL (32-36); Mean Corpuscular Volume 94.8 fL (81-99); Mean Platelet Vol. 10.2 fl (6.2-12.0); Monocyte# 0.42 X10^3/uL; Monocyte% 4.8 % (0-10); NRBC Flagged by Analyzer 0 % (0-5); Neutrophil % 64.4 % (47-70); Platelet Count 245 K/mm3 (150-450); RBC Distribution Width SD 45.5 fl (35.1-43.9); White Blood Count 8.7 K/mm3 (4.4-11.0)
[2021-11-18 15:10] LABS: NATERA MAILED SPECIMEN
[2021-11-18 15:19] LABS: Glucose Challenge Gest 1H 50g 156 mg/dL (70-140)
[2021-11-19 08:52] LABS: HIV - WCH Non-Reactive (Nonreactive); Hepatitis B Surface Antigen Non-Reactive (Nonreactive); Hepatitis C Antibody Non-Reactive (Nonreactive); Rubella IgG Reactive (Nonreactive); Syphilis Antibodies Non-reactive
[2021-11-20 00:06] LABS: Chlamydia By Nucleic Acid AMP Negative (Negative)
[2021-11-20 08:21] LABS: Gonococcus By Nucleic Acid AMP Negative (Negative)
== END 2021-11-18 23:59 | disposition home or self-care (01) ==
LOC: LABSPEC 14:03 → LAB 14:04
PROVIDERS: PCP Preventive Medicine Occupational Medicine; Referring Provider Obstetrics & Gynecology; Visit Provider Obstetrics & Gynecology
DX: Z34.90 Encounter for supervision of normal pregnancy, unspecified, unspecified trimester (principal)
CPT/HCPCS: 36415; 80307; 82950; 85025; 86703; 86762; 86780; 86803; 86850; 86900; 86901; 87086; 87088; 87340; 87491; 87591

== ENCOUNTER → 2021-11-27 | Outpatient (CLI) | payer SELFPAY ==
[2021-11-27 10:36] LABS: Glucose GTT-Gestation. Fasting 92 mg/dL (<105)
[2021-11-27 11:52] LABS: Glucose GTT-Gestational 1 Hr 134 mg/dL (<190)
[2021-11-27 12:48] LABS: Glucose GTT-Gestational 2 Hr 122 mg/dL (<165)
[2021-11-27 13:43] LABS: Glucose GTT-Gestational 3 Hr 93 L (<145)
== END | disposition home or self-care (01) ==
LOC: LAB 09:53
PROVIDERS: PCP Preventive Medicine Occupational Medicine; Referring Provider Obstetrics & Gynecology; Visit Provider Obstetrics & Gynecology
DX: Z13.1 Encounter for screening for diabetes mellitus (principal)
CPT/HCPCS: 36415; 82951; 82952

== ENCOUNTER → 2022-01-21 | Outpatient (CLI) | payer SELFPAY ==
--- NOTE | 2022-01-21 13:42 | US_ITS ---
rScriptor Unformatted Report Age: 26 years Exam: US OB Greater Than 14 Weeks Comparison: None during this provided.. History: anatomy FINDINGS: The cervix is closed and measures 3.7 cm in length on transabdominal exam, 4.3 cm measurement on transvaginal exam. Posterior placenta. No hemorrhage, previa or abruption. The inferior tip is roughly 2.5 cm superior to the internal os. Single live intrauterine fetus, cephalic presentation. heart rate 155 bpm. Adequate amniotic fluid volume. Deepest vertical pocket 4.5 cm. Placental cord insertion appears unremarkable. ANATOMIC SURVEY: No ventriculomegaly. Unremarkable 4 mm cisterna magna, 2.2 cm cerebellum, 0.6 cm lateral ventricles. Female genitalia. Unremarkable stomach, cord insertion, renal fossa, urinary bladder, spine, diaphragm, extremities, four-chamber heart. profile not obtained. Intact-appearing upper lip and tip of nose. MEASUREMENTS: measurements are symmetric and consistent with 20 weeks 0 days gestation sonographically, which correlates well to 20 weeks 4 days clinical EGA. ratios are within normal limits. Sonographic [place] June 10, 2022. Estimated weight 336 g, 25th percentile. IMPRESSION: No acute complications of identified. Unremarkable minimally limited anatomic survey. profile not demonstrated due to positioning but intact-appearing upper lip. Symmetric measurements. Electronically Signed: Amanda Talley MD at 6:24 EDT , Age: 26 years Exam: US OB Greater Than 14 Weeks Comparison: None during this provided.. History: anatomy FINDINGS: The cervix is closed and measures 3.7 cm in length on transabdominal exam, 4.3 cm measurement on transvaginal exam. Posterior placenta. No hemorrhage, previa or abruption. The inferior tip is roughly 2.5 cm superior to the internal os. Single live intrauterine fetus, cephalic presentation. heart rate 155 bpm. Adequate amniotic fluid volume. Deepest vertical pocket 4.5 cm. Placental cord insertion appears unremarkable. ANATOMIC SURVEY: No ventriculomegaly. Unremarkable 4 mm cisterna magna, 2.2 cm cerebellum, 0.6 cm lateral ventricles. Female genitalia. Unremarkable stomach, cord insertion, renal fossa, urinary bladder, spine, diaphragm, extremities, four-chamber heart. profile not obtained. Intact-appearing upper lip and tip of nose. MEASUREMENTS: measurements are symmetric and consistent with 20 weeks 0 days gestation sonographically, which correlates well to 20 weeks 4 days clinical EGA. ratios are within normal limits. Sonographic [place] June 10, 2022. Estimated weight 336 g, 25th percentile. US/OB Anatomy Scan IMPRESSION: No acute complications of identified. Unremarkable minimally limited anatomic survey. profile not demonstrated due to positioning but intact-appearing upper lip. Symmetric measurements. Electronically Signed: Amanda Talley MD at 6:25 EDT ,
== END | disposition home or self-care (01) ==
PROVIDERS: PCP Preventive Medicine Occupational Medicine; Visit Provider Obstetrics & Gynecology
DX: Z34.90 Encounter for supervision of normal pregnancy, unspecified, unspecified trimester (principal); Z12.4 Encounter for screening for malignant neoplasm of cervix
CPT/HCPCS: 76805; 76817

== ENCOUNTER → 2022-03-26 | Outpatient (CLI) | payer SELFPAY ==
[2022-03-26 15:37] LABS: Absolute Neutrophil Count 5.9 X10^3/uL (2.0-7.7); Basophil# 0.02 X10^3/uL; Basophil% 0.2 % (0-1); Eosinophil# 0.11 X10^3/uL; Eosinophils% 1.2 % (0-5); Hematocrit 35.2 % (37-47); Hemoglobin 11.9 g/dL (12.0-15.0); Lymphocyte % 27.3 % (19-41); Mean Corp Hgb Conc 33.8 g/dL (32-36); Mean Corpuscular Hgb 32.7 pg (27.0-32.0); Mean Corpuscular Volume 96.7 fL (81-99); Mean Platelet Vol. 10.1 fl (6.2-12.0); Monocyte# 0.57 X10^3/uL; Monocyte% 6.2 % (0-10); NRBC Flagged by Analyzer 0 % (0-5); Neutrophil # 5.91 X10^3/uL (2.7-7.7); Neutrophil % 64.7 % (47-70); Platelet Count 220 K/mm3 (150-450); RBC Distribution Width CV 12.6 % (11.6-14.6); RBC Distribution Width SD 44.3 fl (35.1-43.9); Red Blood Count 3.64 M/mm3 (4.2-5.4); White Blood Count 9.2 K/mm3 (4.4-11.0)
[2022-03-26 16:01] LABS: Glucose Challenge Gest 1H 50g 146 mg/dL (70-140)
== END | disposition home or self-care (01) ==
LOC: LAB 14:45
PROVIDERS: PCP Preventive Medicine Occupational Medicine; Referring Provider Obstetrics & Gynecology; Visit Provider Obstetrics & Gynecology
DX: Z34.90 Encounter for supervision of normal pregnancy, unspecified, unspecified trimester (principal)
CPT/HCPCS: 36415; 82950; 85025

== ENCOUNTER → 2022-04-06 | Outpatient (CLI) | payer SELFPAY ==
[2022-04-06 11:56] LABS: Glucose GTT-Gestation. Fasting 77 mg/dL (<105)
[2022-04-06 11:56] LABS: Glucose GTT-Gestational 1 Hr 182 mg/dL (<190)
[2022-04-06 12:59] LABS: Glucose GTT-Gestational 2 Hr 205 mg/dL (<165)
[2022-04-06 13:55] LABS: Glucose GTT-Gestational 3 Hr 81 L (<145)
== END | disposition home or self-care (01) ==
PROVIDERS: Referring Provider Obstetrics & Gynecology; Visit Provider Obstetrics & Gynecology
DX: Z13.1 Encounter for screening for diabetes mellitus (principal)
CPT/HCPCS: 36415; 82951; 82952

== ENCOUNTER → 2022-05-14 | Outpatient (CLI) | payer OTHER, SELFPAY | END | disposition home or self-care (01) | LOC: LABSPEC 16:02 | PROVIDERS: Visit Provider Obstetrics & Gynecology | DX: Z34.90 Encounter for supervision of normal pregnancy, unspecified, unspecified trimester (principal) | CPT/HCPCS: 87081 ==

== ENCOUNTER → 2022-05-25 | Outpatient (CLI) | payer OTHER, SELFPAY ==
--- NOTE | 2022-05-25 12:35 | US_ITS ---
STUDY: SECOND AND THIRD TRIMESTER OBSTETRICAL ULTRASOUND - LIMITED REASON FOR EXAM: Female, 26 years old growth -- HX OF GESTATIONAL DIABETES AND OBESITY LMP: 08/30/2021. PRIOR ULTRASOUND: Comparison is made with prior examination dated 01/21/2022. TECHNIQUE: Transabdominal TECHNICAL QUALITY: Adequate. FINDINGS: There is a single intrauterine fetus. The fetus is in a cephalic presentation. There is demonstrated cardiac activity with a heart rate of 150 bpm. There is a normal amniotic fluid volume. The largest amniotic fluid pocket measures 5.1 cm x 3.9 cm. The amniotic fluid index (KARIE) is 18.9 cm. The placenta is posterior in location and is not low lying. There are Grade 1 placental changes. The cervix measures 4.2 cm in length. BIOMETRY: BPD: 8.96 cm: 36 weeks, 2 days HC: 33.32 cm: 38 weeks, 0 days AC: 34.23 cm: 38 weeks, 1 days FL: 7.3 cm: 37 weeks, 3 days Age by LMP: 38 weeks, 2 days. [place] by LMP: 06/06/2022. age by prior US: 37 weeks, 5 days. [place] by prior US: 06/10/2022. age by current US: 37 weeks, 2 days. [place] by current US: 06/13/2022. Estimated weight: 3295 grams, +/- 494 grams, 50 percentile. US/OB Limited With Biometrics IMPRESSION: Single live intrauterine gestation with a mean gestational age of 37 weeks and 5 days. The measurements obtained today fall within the expected range. Electronically Signed: Valeriano Cooper MD at 14:30 EDT ,
== END | disposition home or self-care (01) ==
PROVIDERS: Visit Provider Obstetrics & Gynecology
DX: O99.213 Obesity complicating pregnancy, third trimester (principal); Z3A.37 37 weeks gestation of pregnancy
CPT/HCPCS: 76816

== ENCOUNTER 2022-05-29 11:50 | Outpatient (CLI) | payer OTHER, SELFPAY ==
[2022-05-29 12:04] VITALS: BP 123/92; PULSE 90; O2SAT 98
[2022-05-29 12:05] VITALS: TEMP 36.6; O2SAT 98
[2022-05-29 12:09] VITALS: BMI 42.1
--- NOTE | 2022-06-03 18:39 | OB.TRI.PN ---
Progress Notes Date of Service: 05/29/22 Progress Note: Patient presents for triage evaluation secondary to decreased movement FHT: 130 Moderate variability reactive no decelerations category I tracing [place]: no regular Contractions Assessment and plan: dec movement now doing well feeling movement Reactive NST, reassuring maternal and status patient discharged to home to follow-up as scheduled. See problem list details for additional plan information. Charges/Coding Procedures Urinary/Genital [id number]: [id number] non-stress test Interp
== END 2022-05-29 12:59 | disposition home or self-care (01) ==
LOC: WPOUT 11:51 → WP 11:52
PROVIDERS: Referring Provider Obstetrics & Gynecology; Visit Provider Obstetrics & Gynecology
DX: O36.8190 Decreased fetal movements, unspecified trimester, not applicable or unspecified (principal)
CPT/HCPCS: 59025; 59050

== ENCOUNTER 2022-06-05 04:35 | Inpatient (IN) | payer OTHER, SELFPAY ==
[2022-06-05] VITALS (65 sets, daily range): BP systolic 86–156; BP diastolic 46–95; PULSE 52–187; RESP 16; TEMP 35.9–37.1; O2SAT 79–100; BMI 42.3
[2022-06-05] MEDS: Lactated Ringers 1,000 ML 50 ML IV (05:00)
[2022-06-05] MEDS: LACTATED RINGERS 500 ML 999 ML IV (05:09)
[2022-06-05 05:19] LABS: Absolute Lymphocyte Count 2.59 X10^3/uL (0.83-4.51); Absolute Neutrophil Count 8.4 X10^3/uL (2.0-7.7); Basophil# 0.02 X10^3/uL; Basophil% 0.2 % (0-1); Eosinophil# 0.07 X10^3/uL; Eosinophils% 0.6 % (0-5); Hematocrit 39.2 % (37-47); Lymphocyte # 2.59 X10^3/ul (0.83-4.51); Mean Corp Hgb Conc 33.2 g/dL (32-36); Mean Corpuscular Hgb 32.4 pg (27.0-32.0); Mean Corpuscular Volume 97.8 fL (81-99); Mean Platelet Vol. 11.5 fl (6.2-12.0); Monocyte# 0.66 X10^3/uL; Monocyte% 5.6 % (0-10); NRBC Flagged by Analyzer 0 % (0-5); Neutrophil # 8.38 X10^3/uL (2.7-7.7); Neutrophil % 71.3 % (47-70); Platelet Count 177 K/mm3 (150-450); RBC Distribution Width CV 12.7 % (11.6-14.6); RBC Distribution Width SD 45.2 fl (35.1-43.9); Red Blood Count 4.01 M/mm3 (4.2-5.4); White Blood Count 11.8 K/mm3 (4.4-11.0)
[2022-06-05 05:46] LABS: Bedside Glucose 75 mg/dL (74-106)
[2022-06-05] MEDS: fentaNYL-bupivacaine (epidural) 100 ML BAG EPIDURAL ×2 (06:10→10:15)
[2022-06-05 06:55] LABS: Bedside Glucose 76 mg/dL (74-106)
[2022-06-05 07:50] LABS: Bedside Glucose 70 mg/dL (74-106)
--- NOTE | 2022-06-05 08:17 | HP.PCM.OB_ITS ---
HPI - General General Date of Admission: 06/05/22 HPI Narrative JILL BUSTILLO, is a 26 F G2, P1 at 39+6 who presents with consistent contractions from 11 PM last night. Contractions are every 5 minutes and getting more painful. Patient was triaged by nursing staff and cervical change was demonstrated. Patient's course was complicated by diet-controlled gestational diabetes, obesity greater than 40 BMI, tobacco use. -Growth scan was obtained on 05/26 and noted to be in the 50th percentile. Blood sugars have been stable. labs as below Maternal Data Information [place] Calculator Estimated Delivery Date Method Current WG Current Estimate 06/06/22 Ultrasound #1 39w 6d Other Estimates 06/16/22 LMP (Certain) 38w 3d Final [place]: 06/06/22 Final [place] Source: US <20 weeks Gestational age: 39+6 [facility] Medical History (Updated 06/05/22 @ 08:57 by Ginger Das CNM) Abnormal glucose affecting Acute appendicitis Gestational diabetes Non-smoker Superficial varicosities Home Medications docosahexaenoic acid 200 mg capsule ( DHA) 200 mg PO DAILY Check with primary doctor 11/16/21 [History Last Taken 06/04/22 09:00] blood sugar diagnostic (Blood Glucose Test strips) #50 ea 04/09/22 [Rx Last Taken Unknown] blood-glucose meter (Blood Glucose Monitoring kit) #1 ea 04/09/22 [Rx Last Taken Unknown] lancets #100 ea 04/09/22 [Rx Last Taken Unknown] Allergy/AdvReac Type Severity Reaction Status Date / Time No Known Allergies Allergy Verified 06/05/22 02:46 Family History Mother Diabetes Heart disease Grandfather Myocardial infarction Surgical History History of appendectomy (~12/2020) Social History number of children: 1 current occupational status: employed 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 Date Name GA/Weeks Outcome Route Bth Weight Gen Labor Lgth Anesthesia Del Locatn Provider FOB 05/15/20 Dyan 39 live - full term 6lbs 2oz Female 9 ho urs epidural [facility] Sylwia Grace Delivery Date: 05/15/20 Last Updated by: Hina Ghosh PROM Visit Details Expected Delivery Route/Plan by 40 Labor Preferences- labor support person:Sanjay labor intervention preferences: none pain management options preferred: epidural cut cord/dad catch: yes : yes PP control planned: [] discussed possible routes of delivery and associated risks: [] special requests: [] Plans Covid status: had covid in jun 2021. unvaccinated Flu vaccine: unvaccinated, declines Tdap vaccine:obtained. Rhogam: na LARC form signed: completed movement and labor precautions reviewed. Problem list reviewed and updated with the most current plan of care details and appropriate orders placed. Relevant counseling for the gestational age provided. Continue routine care and follow up unless otherwise noted in visit notes/problem list details OB Flowsheet Initial Weight: Not Recorded Date -?-?-?-?-?-?-?-?-?-?-?-?- EGA Weight BP Urine Prot -?-?-?-?-?-?-?-?-?-?-?-?- Glucose FHR FuHt Pres Dilation -?-?-?-?-?-?-?-?-?-?-?-?- Effaced St Visit Note 11/17/21 -?-?-?-?-?-?-?-?-?-?-?-?- 11w 2d 205 lb 128/82 -?-?-?-?-?-?-?-?-?-?-?-?- 157 -?-?-?-?-?-?-?-?-?-?-?-?- JV- CRL not cons istent with LMP. new [place] of 06/06/22 given 12/15/21 -?-?-?-?-?-?-?-?-?-?-?-?- 15w 2d 204 lb 8 oz 100/80 Nega tive -?-?-?-?-?-?-?-?-?-?-?-?- Negative 150 -?-?-?-?-?-?-?-?-?-?-?-?- JV- normal CRL. pt denies genetic screening no complaints today. nausea improved 01/21/22 -?-?-?-?-?-?-?-?-?-?-?-?- 20w 4d 207 lb 117/72 Negative -?-?-?-?-?-?--?-?-?-?-?-?- Negative 145 -?-?-?-?-?-?-?-?-?-?-?-?- SM- no vb lof go od fm no regular ctx 02/26/22 -?-?-?-?-?-?-?-?-?-?-?-?- 25w 5d 213 lb 100/60 Negative -?-?-?-?-?-?-?-?-?-?-?-?- Negative 145 24 -?-?-?-?-?-?-?-?-?-?-?-?- SM- no vb lof go od fm nor eguar ctx 03/19/22 -?-?-?-?-?-?-?-?-?-?-?-?- 28w 5d 215 lb 2 oz 90/70 Nega tive -?-?-?-?-?-?-?-?-?-?-?-?- Negative 147 -?-?-?-?-?-?-?-?-?-?-?-?- JV- ask next vis it about sister's lung biopsy. she is very nervous. no lof, vaginal bleeding, or dec fm. tdap today. 04/02/22 -?-?-?-?-?-?-?-?-?-?-?-?- 30w 5d 215 lb 109/72 -?-?--?-?-?-?-?-?-?-?-?-?- 146 30 -?-?-?-?-?-?-?-?-?-?-?-?- JV- no lof ,vagi nal bleeding, or cramping. sister's biopsy was negative. failed 1 hr. will do 3 hr on tuesday next week. return in 2 weeks will call with results. 04/16/22 -?-?-?-?-?-?-?-?-?-?-?-?- 32w 5d 216 lb 8 oz 121/80 Nega tive -?-?-?-?-?-?-?-?-?-?-?-?- Negative 145 33 -?-?-?-?-?-?-?-?-?-?-?-?- JV- no lof, vagi nal bleeding, or dec fm. abnormal 3 hr. pt sent to Dr. Crews. 04/30/22 -?-?-?-?-?-?-?-?-?-?-?-?- 34w 5d 221 lb 110/75 Negative -?-?-?-?-?-?-?-?-?-?-?-?- Negative 155 35 -?-?-?-?-?-?-?-?-?-?-?-?- LC-no lof, vb,ct x. good fm. glucose well controlled. LC-no lof, vb,ctx. good fm. glucose well controlled, per pt none out of range. 05/14/22 -?-?-?-?-?-?-?-?-?-?-?-?- 36w 5d 221 lb 4 oz 129/88 Nega tive -?--?-?-?-?-?-?-?-?-?-?-?- Negative 145 37 -?-?-?-?-?-?-?-?-?-?-?-?- JV- no lof, vagi nal bleeding, or dec fm GBS collected. 05/21/22 -?-?-?-?-?-?-?-?-?-?-?-?- 37w 5d 221 lb 116/80 Negative -?-?-?-?-?-?-?-?-?-?-?-?- Negative 130 38 -?-?-?-?-?-?-?-?-?-?-?-?- Sm- encouraged B F consultation if desired. no vb lof good fm no regular ctx BS well controlled growth US ordered 05/28/22 -?-?-?-?-?-?-?-?-?-?-?-?- 38w 5d 223 lb 6 oz 118/78 Nega tive -?-?-?-?-?-?-?-?-?-?--?-?- Negative 145 38 Cephalic 1 -?-?-?-?-?-?-?-?-?-?-?-?- 30 -3 JV- no lof , vagainal bleeding, or dec fm. no complaints today. fasting glucose levels are 90's and 2 hr pp are 1-teens. 06/04/22 -?-?-?-?-?-?-?-?-?-?-?-?- 39w 5d 223 lb 118/87 Negative -?-?-?-?-?-?-?-?-?-?-?-?- Negative 140 40 Cephalic 2 .5 -?-?-?-?-?-?-?-?-?-?-?-?- 60 -3 - no vb lof good fm no regualr ctx discussed IOL 06/05/22 -?-?-?-?-?-?-?-?-?-?-?-?- 39w 6d 223 lb 12.307 oz 132 /89 142/95 139/92 136/91 106/69 95/67 99/68 106/76 114/64 113/64 100/66 102/64 -?-?-?-?-?-?-?-?-?-?-?-?- -?-?-?-?-?-?-?-?-?-?-?-?- NST FHR Rate Baby A Baseline: 115 Variability:: Moderate Accelerations:: 15 x 15 NST Reactive:: Yes FHR Category:: Category I Uterine Activity:: q3-4 ROS Cardiovascular Cardiovascular: Denies abdominal pain, chest pain, diaphoresis, dyspnea, edema or fatigue Respiratory/Chest Respiratory/Chest: Denies change in mental status, chest congestion, chest tightness, cough, shortness of breath at rest, shortness of breath with exertion, breast mass, breast pain, breast skin changes, breast swelling, change in breast shape or nipple discharge Gastrointestinal Gastrointestinal: Denies diarrhea, hemorrhoids, nausea, vomiting or weight changes Genitourinary Genitourinary: Denies abdominal discomfort, burning urination, change in urinary stream, contractions, difficulty urinating, dysuria, movement, low back pain, urinary frequency, urinary hesitancy, urinary incontinence or urinary urgency Musculoskeletal Musculoskeletal: Reports none Integumentary Integumentary: Reports none Neurologic Neurologic: Reports none Psychiatric Psychiatric: Reports none Endocrine Endocrinology: Reports none Hematologic/Lymphatic Hematologic/Lymphatic: Reports none Allergic/Immunologic Allergic/Immunologic: Reports none Vital Signs Vital Signs Vital Signs: 06/05/22 02:52 06/05/22 02:52 06/05/22 02:52 Temperature Temperature Source Pulse Rate 90 Blood Pressure 132/89 H BP Systolic 132 BP Diastolic 89 Pulse Ox 94 06/05/22 02:52 06/05/22 02:52 06/05/22 02:52 Temperature Temperature Source Temporal Pulse Rate 95 Blood Pressure BP Systolic BP Diastolic Pulse Ox 97 06/05/22 02:52 06/05/22 02:52 06/05/22 05:47 Temperature 97.4 F L Temperature Source Pulse Rate 85 Blood Pressure BP Systolic BP Diastolic Pulse Ox 95 06/05/22 05:47 06/05/22 05:53 06/05/22 05:53 Temperature Temperature Source Pulse Rate 77 Blood Pressure 142/95 H BP Systolic 142 BP Diastolic 95 Pulse Ox 100 06/05/22 05:52 06/05/22 05:58 06/05/22 05:58 Temperature Temperature Source Pulse Rate 75 Blood Pressure 139/92 H BP Systolic 139 BP Diastolic 92 Pulse Ox 100 06/05/22 05:57 06/05/22 06:02 06/05/22 06:02 Temperature Temperature Source Pulse Rate 82 Blood Pressure BP Systolic BP Diastolic Pulse Ox 99 99 06/05/22 06:03 06/05/22 06:03 06/05/22 06:07 Temperature Temperature Source Pulse Rate 84 149 H Blood Pressure 136/91 H BP Systolic 136 BP Diastolic 91 Pulse Ox 06/05/22 06:07 06/05/22 06:08 06/05/22 06:08 Temperature Temperature Source Pulse Rate 88 Blood Pressure BP Systolic BP Diastolic Pulse Ox 83 96 06/05/22 06:10 06/05/22 06:10 06/05/22 06:13 Temperature Temperature Source Pulse Rate 104 H Blood Pressure 106/69 95/67 BP Systolic 106 95 BP Diastolic 69 67 Pulse Ox 06/05/22 06:13 06/05/22 06:13 06/05/22 06:13 Temperature Temperature Source Pulse Rate 96 100 Blood Pressure BP Systolic BP Diastolic Pulse Ox 97 06/05/22 06:17 06/05/22 06:17 06/05/22 06:18 Temperature Temperature Source Pulse Rate 106 H 119 H Blood Pressure 99/68 BP Systolic 99 BP Diastolic 68 Pulse Ox 06/05/22 06:18 06/05/22 06:23 06/05/22 06:23 Temperature Temperature Source Pulse Rate 103 H Blood Pressure 106/76 BP Systolic 106 BP Diastolic 76 Pulse Ox 97 06/05/22 06:23 06/05/22 06:23 06/05/22 06:28 Temperature Temperature Source Pulse Rate 94 Blood Pressure 114/64 BP Systolic 114 BP Diastolic 64 Pulse Ox 97 06/05/22 06:28 06/05/22 06:28 06/05/22 06:33 Temperature Temperature Source Pulse Rate 109 H Blood Pressure 113/64 BP Systolic 113 BP Diastolic 64 Pulse Ox 98 06/05/22 06:33 06/05/22 06:30 06/05/22 07:20 Temperature Temperature Source Pulse Rate 102 H Blood Pressure 100/66 BP Systolic 100 BP Diastolic 66 Pulse Ox 98 06/05/22 07:20 06/05/22 07:15 06/05/22 07:21 Temperature Temperature Source Tympanic Pulse Rate 75 75 Blood Pressure BP Systolic BP Diastolic Pulse Ox 06/05/22 07:21 06/05/22 07:15 Temperature 96.8 F L Temperature Source Pulse Rate Blood Pressure BP Systolic BP Diastolic Pulse Ox 97 Weight Weight: 223 lb 12.307 oz Body Mass Index (BMI) 42.3 Physical Exam Const alert, oriented x3 and no apparent distress General Appearance: cooperative, comfortable and well kempt; Negative for in distress Orientation / Consciousness: awake and oriented to person Exam Limitations: no limitations HEENT normocephalic Mouth: oral and palatal mucosa normal Neck full ROM and thyroid normal Chest inspection of chest normal Resp normal respiratory effort Effort and Inspection: able to speak in complete sentences and symmetric chest movement Cardio regular rate Peripheral Pulses: pulses 2+ throughout GI normal to inspection, nondistended, normoactive bowel sounds Inspection: gravid no CVA tenderness and appearance of the vagina normal External Female Exam: normal appearance of the urethra; Negative for external lesion OB / External & Speculum: external exam normal Manual OB Exam: estimated gestational size appropriate and presentation cephalic Uterus Palpation: Negative for uterus tender Extremity normal to inspection Skin no rashes or lesions noted Neuro deep tendon reflexes 2+ bilaterally and gait normal Motor Exam: strength 5/5 throughout and clonus absent Psych Activity / Motor Behavior: appropriate eye contact Speech: normal speech Labs Labs Labs: Blood Type O POSITIVE Antibody Screen NEGATIVE Hct 39.2 % (37-47) Hgb 13.0 g/dL (12.0-15.0) Obstetrics US Syphilis Total Ab Non-reactive Rubella IgG Antibody Reactive (Nonreactive) Hep Bs Antigen Non-Reactive (Nonreactive) Chlamydia DNA (BERENICE) Negative (Negative) Neisseria gonorrhoeae DNA (BERENICE) Negative (Negative) HIV 1&2 Antibody Non-Reactive (Nonreactive) Glucose 1 Hr 50 gm 146 mg/dL (70-140) H Rhogam given: No Miscellaneous Test Assessment & Plan (1) Supervision of normal : COMMENT: PRR [place] 06/16/22 girl Nayely PC: Dyan : Sanjay (2) : QUALIFIERS: Weeks of gestation: 39 weeks Qualified Code(s): Z3A.39 - 39 weeks gestation of COMMENT: GBS neg., NIPT low risk, declines carrier and afp testing, nl anatomy US (3) Smoking (tobacco) complicating , first trimester: COMMENT: Currently smokes 1 cigarette per day, encourage cessation (4) Obesity affecting : QUALIFIERS: Trimester: third trimester Qualified Code(s): O99.213 - Obesity complicating , third trimester COMMENT: 1 hr GTT ordered at NOB, nl 3 hr gtt (5) Gestational diabetes: COMMENT: endo following. diet controlled. growth US ordered. deliver by 40. 05/26 growth 50% 3295g +/- 494g EFW by Brien's= 7 pounds (6) Active labor at term: PLAN: Plan Patient presents IAL at 39+6. . -minimal change from admission, AROM performed. IUPC placed for inability to trace ctx. -Pitocin augmentation per protocol if contractions not adequate. -re-evaluate cervical exam in 2-4 hours based on ctx pattern -maternal and status is reassuring Pain management: epidural GBS negative Management of any complications: [none] I have reviewed the [facility] and made any clinically relevant updates.
[2022-06-05] MEDS: Oxytocin 15 Units/NS 250ml 15 UNITS/250 ML IV.SOLN 2 UNITS IV (08:49)
[2022-06-05] MEDS: Lactated Ringers 1,000 ML 200 ML IV (10:15)
[2022-06-05 11:55] LABS: Bedside Glucose 57 mg/dL (74-106)
[2022-06-05 12:10] LABS: Bedside Glucose 82 mg/dL (74-106)
--- NOTE | 2022-06-05 12:22 | PN.OBGYN_ITS ---
Subjective Subjective Comfortable with epidural. Objective Data Objective Data Vital Signs: Vital Signs Temp Pulse BP Pulse Ox 97.9 F 85 106/69 100 06/05/22 12:12 06/05/22 12:14 06/05/22 12:14 06/05/22 12:14 Weight: 223 lb 12.307 oz Body Mass Index (BMI) 42.3 Intake & Output: Intake and Output for Last 24 Hours 06/03/22 06/04/22 06/05/22 23:59 23:59 23:59 Intake Total 1412.24 / 1412.24 Output Total 900 / 900 Balance 512.24 / 512.24 Lab / Micro Data Result Diagrams: 06/05/22 05:00 Labs: Laboratory Results - last 24 hr 06/05/22 04:52: POC Glucose 75 06/05/22 05:00: WBC 11.8 H, RBC 4.01 L, Hgb 13.0, Hct 39.2, MCV 97.8, MCH 32.4 H , MCHC 33.2, RDW Std Deviation 45.2 H, RDW Coeff of Nicholas 12.7, Plt Count 177, MPV 11.5, Immature Gran % (Auto) 0.300, Neut % (Auto) 71.3 H, Lymph % (Auto) 22.0, [place] % (Auto) 5.6, Eos % (Auto) 0.6, Baso % (Auto) 0.2, Absolute Neuts (auto) 8.4 H, Absolute Lymphs (auto) 2.59, Nucleated RBC % 0 06/05/22 05:00: Blood Type O POSITIVE, Antibody Screen NEGATIVE 06/05/22 06:31: POC Glucose 76 06/05/22 07:30: POC Glucose 70 L 06/05/22 11:31: POC Glucose 57 L 06/05/22 11:52: POC Glucose 82 Micro: Microbiology 06/05/22 05:00 Nasal Secretion SARS-CoV-2 Antigen (Rapid) - Final Assessment & Plan (1) Active labor at term: (2) Supervision of normal : COMMENT: PRR [place] 06/16/22 girl Nayely PC: Dyan : Sanjay (3) : QUALIFIERS: Weeks of gestation: 39 weeks Qualified Code(s): Z3A.39 - 39 weeks gestation of COMMENT: GBS neg., NIPT low risk, declines carrier and afp testing, nl anatomy US (4) Smoking (tobacco) complicating , first trimester: COMMENT: Currently smokes 1 cigarette per day, encourage cessation (5) Obesity affecting : QUALIFIERS: Trimester: third trimester Qualified Code(s): O99.213 - Obesity complicating , third trimester COMMENT: 1 hr GTT ordered at NOB, nl 3 hr gtt (6) Gestational diabetes: COMMENT: endo following. diet controlled. growth US ordered. deliver by 40. 05/26 growth 50% 3295g +/- 494g EFW by Brien's= 7 pounds PLAN: Plan current tracin FHT: [with] Moderate variability reactive no decelerations category I tracing [place]: [4 in 10minutes] adequate Contractions with pitocin augmentation at 10mu. reviewed tracing abnormalities since last note: [occ episodic variables with quick return to baseline ] A/P: 26 yo at 39.6 in transition labor anticipate GDMA- continue to monitor BS per protocol
[2022-06-05 13:10] LABS: Bedside Glucose 101 mg/dL (74-106)
[2022-06-05] MEDS: Methylergonovine 0.2 MG/ML Ampul IM (13:15)
--- NOTE | 2022-06-05 13:41 | EX.PCM.OBRPT ---
Assessment & Plan (1) Supervision of normal : COMMENT: PRR [place] 06/16/22 girl Nayely PC: Dyan : Sanjay (2) : QUALIFIERS: Weeks of gestation: 39 weeks Qualified Code(s): Z3A.39 - 39 weeks gestation of COMMENT: GBS neg., NIPT low risk, declines carrier and afp testing, nl anatomy US (3) Smoking (tobacco) complicating , first trimester: COMMENT: Currently smokes 1 cigarette per day, encourage cessation (4) Obesity affecting : QUALIFIERS: Trimester: third trimester Qualified Code(s): O99.213 - Obesity complicating , third trimester COMMENT: 1 hr GTT ordered at NOB, nl 3 hr gtt (5) Gestational diabetes: COMMENT: endo following. diet controlled. growth US ordered. deliver by 40. 05/26 growth 50% 3295g +/- 494g EFW by Brien's= 7 pounds (6) (spontaneous vaginal delivery): COMMENT: IAL, GDMA/obesity. girl: Nayely Flores. PLAN: Plan routine pp care support monitor glucose per protocol Maternal Data Information [place] Calculator Estimated Delivery Date Method Current WG Current Estimate 06/06/22 Ultrasound #1 39w 6d Other Estimates 06/16/22 LMP (Certain) 38w 3d Vaginal Delivery Maternal Presentation Maternal Presentation: Active Labor Operative Information Pre-Operative Diagnosis: Labor Post-Operative Diagnosis: Surgery / Procedure Performed: Spontaneous Vaginal Delivery Type of Anesthesia: Epidural Drain: Mejia to straight drain Estimated Blood Loss: 300 Time of Delivery: 12:58 Findings Description of Procedure: Patient began pushing and delivered the head in the CATRACHITA presentation. The head was delivered atraumatically and a loose nuchal cord ?1 was identified and easily reduced over the infant's head. The anterior and posterior shoulders delivered without complication followed by the rest of the infant and the was placed on the maternal abdomen. Delayed cord clamping was employed for approximately 5 minutes. Cord was clamped and cut and gentle traction was applied to the cord and the placenta delivered spontaneously immediately following it was noted to be intact with three-vessel cord. pitocin per protocol following delivery. increased bleeding noted, methergine 0.2mg IM given with great effect fundal firm with hemostasis achieved. The perineum and vagina were inspected and to have small 1st degree with left labia tear, repaired with 3.0 Vicryl per usual fashion. EBL was [300 cc]. Patient and infant tolerated delivery well entered recovery phase bonding skin to skin., Presentation: Vertex and CATRACHITA Amniotic Membrane Rupture Type: Artificial Time of Membrane Rupture: 806 Amniotic Fluid Description: Clear Placental Delivery Description: Spontaneous Placenta Disposition: [facility] Cord Vessel Description: 3 Vessels Cord Entanglement: Around neck x 1, loose A Gender: Female (1 minute): 9 (5 minute): 9 Delayed Cord Clamping: Yes Post Vaginal Delivery Medications Given After Delivery: IV Pitocin and IM Methergin Episiotomy Description: None Laceration: Perineal Extension/lac (left labia) and 1st degree Complication Complications: None Multi Select Codes Urinary/Genital Urinary/Genital CPT Codes: 00058 Vaginal Delivery global pkg (CNM DELIVERY)
[2022-06-05 14:26] LABS: Bedside Glucose 68 mg/dL (74-106)
[2022-06-05 14:50] LABS: Bedside Glucose 96 mg/dL (74-106)
[2022-06-05] MEDS: Naproxen 500 MG Tablet PO (16:30)
[2022-06-06 03:06] VITALS: BP 135/88; PULSE 93; RESP 16; TEMP 36.5
[2022-06-06 06:31] LABS: Bedside Glucose 74 mg/dL (74-106)
[2022-06-06 07:54] VITALS: BP 108/61; PULSE 88; RESP 16; TEMP 36.1; O2SAT 97
--- NOTE | 2022-06-06 08:29 | DCINST_ITS ---
Discharge Instructions Diet Discharge Diet: No restrictions Activity Discharge Activity: May Not Drive and May Shower May resume sexual activity in: 6 weeks Weight Bearing Status: Full weight bearing Dressing / Incision Call your doctor if your incision/area has: Sudden Increased Bleeding, Increased Pain/ Swelling and Foul Smelling Discharge Call your doctor if you observe: Fever of 101 or Higher, Numbness or Tingling, Change in Color, Inability to urinate, Inability to have a bowel movement, Using more than 1 pad per hour, Shortness of breath, Dizziness, Fainting spells, Chest pain, Calf discomfort and Uncontrolled pain Follow Up Care Please Follow Up With: Ginger Das CNM When: 6 weeks , please call office to make an appointment. Congratulations on the Nayely-Sandra! Test Results: Test results from this visit will be discussed in further detail at your follow- up appointment, if applicable. Discharge Plan Admission Admit Date/Time: 06/05/22 04:35 Attending Provider: Ginger Das Primary Care Provider: Care Physician,Sharon Primary Discharge Orders/Prescriptions Prescriptions: No Action DHA 200 mg capsule 200 mg PO DAILY (DME) lancets Misc See Rx Instructions .ROUTE .MEDSUPPLY Qty: 100 6RF Rx Instructions: As directed testing in am and 2 hours after meals(4 times each day) (DME) blood-glucose meter [Blood Glucose Monitoring] Kit See Rx Instructions .Route Qty: 1 0RF Rx Instructions: As directed (DME) Blood Glucose Test Strip See Rx Instructions .Route Qty: 50 9RF Rx Instructions: As directed test in am and 2 hour post meals(4 times/day) Referrals / Follow Up: Care Physician,No Primary [Primary Care Provider] - Disposition Disposition (needs filled in before D/C Order can be placed): Home, Self Care
--- NOTE | 2022-06-06 08:30 | PCM.PN.OB ---
Subjective Subjective Patient doing well without complaints. Tolerating PO. Ambulating and voiding without difficulty. Feeding well. Denies chest pain, shortness of breath, calf pain/swelling, fevers, chills, lightheadedness. Objective Data Objective Data Vital Signs: Vital Signs Temp Pulse Resp BP Pulse Ox O2 Del Method 96.9 F L 88 16 108/61 97 Room Air 06/06/22 07:54 06/06/22 07:54 06/06/22 07:54 06/06/22 07:54 06/06/22 07:54 06/06/22 07:54 Oxygen Delivery Method Room Air Weight: 223 lb 12.307 oz Body Mass Index (BMI) 42.3 Intake & Output: Intake and Output for Last 24 Hours 06/04/22 06/05/22 06/06/22 23:59 23:59 22:59 Intake Total 2227.09 / 2227.09 Output Total 2700 / 2700 Balance -472.91 / -472.91 Lab / Micro Data Attestation: I reviewed the patient's lab results. Result Diagrams: 06/05/22 05:00 Labs: Laboratory Results - last 24 hr 06/05/22 11:31: POC Glucose 57 L 06/05/22 11:52: POC Glucose 82 06/05/22 12:50: POC Glucose 101 06/05/22 14:05: POC Glucose 68 L 06/05/22 14:30: POC Glucose 96 06/06/22 05:40: POC Glucose 74 Micro: Microbiology 06/05/22 05:00 Nasal Secretion SARS-CoV-2 Antigen (Rapid) - Final Physical Exam Const alert, oriented x3 and no apparent distress HEENT normocephalic Eyes PERRL Neck full ROM Lymph Lymphatic: no lymphadenopathy noted Resp normal respiratory effort and normal air movement Cardio regular rate GI soft to palpation GI Narrative: fundus firm 1 below U. Narrative: scant lochia eloy, no clots Extremity normal to inspection and full ROM Skin Skin Narrative: edema to bilateral LE. Neuro oriented x3 Psych mental status grossly normal Assessment & Plan (1) (spontaneous vaginal delivery): COMMENT: IAL, GDMA/obesity. girl: Nayely Flores. PLAN: s/p PPD # 1 1. routine post delivery care 2. breast feeding- support given 3. rh positive 4. rubella immune 5. d/c home today -obtain 6 week 2hour GCT for diet controlled GDM PLAN: Plan Baby name: Tresa Flores. delivery details: see problem list for complications. additional follow up needed: 6 week PPV please complete episode, update obstetric and surgical history, and inform cashier office of delivery. Please cancel any other appointments and call her to schedule her 6 week visit. Ask if she will want an IUD inserted at that appointment and if so please obtain a prior authorization approval. thank you. Dulce please call the patient in 2 weeks for follow up.
[2022-06-06 14:32] VITALS: BP 110/79; PULSE 78; RESP 16; TEMP 36.4; O2SAT 98
== END 2022-06-06 14:33 | disposition home or self-care (01) | DRG 807 ==
LOC: WPOUT 04:37 → WP 04:37
PROVIDERS: Admitting Provider Registered Nurse; Visit Provider Registered Nurse
DX: O24.410 Gestational diabetes mellitus in pregnancy, diet controlled (principal); Z37.0 Single live birth; E66.9 Obesity, unspecified; F17.210 Nicotine dependence, cigarettes, uncomplicated; Z3A.39 39 weeks gestation of pregnancy; O99.214 Obesity complicating childbirth; O99.334 Smoking (tobacco) complicating childbirth; O69.81X0 Labor and delivery complicated by cord around neck, without compression, not applicable or unspecified
CPT/HCPCS: 59025; 59050; 82962; 85025; 86850; 86900; 86901; 87426; 99218; J7120; G0378

== ENCOUNTER 2022-11-22 18:49 | Emergency (ER) | payer MEDICAID, SELFPAY ==
[2022-11-22 18:51] VITALS: BP 145/93; PULSE 115; RESP 24; TEMP 36.3; O2SAT 100; BMI 38.8
--- NOTE | 2022-11-22 20:37 | EKG12_ITS ---
Test Reason : PALPS Blood Pressure : / mmHG Vent. Rate : 095 BPM Atrial Rate : 095 BPM P-R Int : 142 ms QRS Dur : 080 ms QT Int : 332 ms P-R-T Axes : 048 028 040 degrees QTc Int : 417 ms Normal sinus rhythm Normal ECG Confirmed by DELORIS MULLEN, ALBAN ([id number]), industrial editor REGINA JOAQUIN ([id number]) on 11/25/2022 9:16:13 AM Referred By: Doni Grant Confirmed By:ALBAN PUENTES MD
[2022-11-22 20:51] VITALS: PULSE 81; RESP 18
[2022-11-22 20:56] VITALS: BP 107/64; BP 118/84; BP 120/83; PULSE 72; PULSE 81; PULSE 84
[2022-11-22 21:13] LABS: Anion Gap 3 (5-15); BUN 13 mg/dL (7-18); BUN/Creat Ratio 20.4 RATIO (10-20); Calcium,Total 9.4 mg/dL (8.5-10.1); Chloride 107 mmol/L (98-107); Creatinine, Serum 0.64 mg/dL (0.55-1.02); EST Glomerular Filtration Rate 118 mL/min (>60); Est Glom Filt Rate - Afr Amer 142 mL/min (>60); Estimated Creatinine Clearance 98.75 ml/min; Glucose 84 mg/dL (74-106); Potassium 3.8 mmol/L (3.5-5.1); Sodium Level 136 mmol/L (136-145)
--- NOTE | 2022-11-22 22:03 | EX.ED.DYSGE1 ---
HPI History of Present Illness Chief Complaint: Palpitations Detail of Chief Complaint: Patient presents with palpitations and irregular heartbeat. Informant: patient Onset/Context/Timing Onset: Weeks (Approximately 1 week) Context: Sudden Onset Timing: Intermittent Quality: Palpitations and irregular beat Location: Chest Current Severity: Mild Maximum Severity: Moderate Worsened by: Nothing Relieved by: Nothing Associated Symptoms Associated Symptoms: No orthostatic symptoms, dyspnea, diaphoresis or nausea and vomiting Narrative Narrative: Patient is a 6-year-old female who delivered 5 months ago and presents with palpitations that started approximate week ago.'s been intermittent. States it was worse today. She did not check her pulse. She denies history of PE or DVT. Denies leg pain, swelling discoloration. She denies fever, chills night sweats. Denies weight gain or weight loss. She denies headache, visual, ocular auditory symptoms. She denies sore throat. She denies chest discomfort or pain of any type. She denies dyspnea, dyspnea on exertion, orthopnea or PND. She denies abdominal pain, nausea, vomiting or diarrhea. She denies black or maroon-colored stool. Patient denies dysuria, frequency, urgency or hematuria. She denies symptoms of . There is no history of PSVT. She does admit to 2 cups of coffee per day. Prior similar symptoms: No Recent Illness/Hospitalization: No PFSH PFSH Medical History Abnormal glucose affecting Acute appendicitis Gestational diabetes Non-smoker Superficial varicosities Home Medications blood sugar diagnostic (Blood Glucose Test strips) #50 ea 04/09/22 [Rx Last Taken Unknown] blood-glucose meter (Blood Glucose Monitoring kit) #1 ea 04/09/22 [Rx Last Taken Unknown] lancets #100 ea 04/09/22 [Rx Last Taken Unknown] Allergy/AdvReac Type Severity Reaction Status Date / Time No Known Allergies Allergy Verified 07/12/22 10:41 Family History Mother Diabetes Heart disease Grandfather Myocardial infarction Surgical History History of appendectomy (~12/2020) Social History number of children: 1 current occupational status: employed 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 [employer] history of recent travel: No Smoking Status: Former smoker Tobacco: How many years used: 9 alcohol intake: never substance use type: does not use caffeine: Yes Type: coffee Number of servings: 2 seatbelt use: always do you feel safe at home: Yes additional social history: [employer] 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 [employer] ROS ED Constitutional Constitutional ED: Denies chills, fever(s), subjective, sweats or weight loss Eyes Eyes: Denies blurry vision, change in vision or diplopia ENT ENT ED: Denies ear pain, rhinorrhea or sore throat Cardiovascular Cardiovascular: Reports palpitations; Denies chest pain, orthopnea, paroxysmal nocturnal dyspnea or racing heartbeat Respiratory/Chest Respiratory/Chest: Denies cough, dyspnea, dyspnea on exertion, orthopnea or paroxysmal nocturnal dyspnea Gastrointestinal Gastrointestinal: Denies abdominal pain, diarrhea, melena, nausea or vomiting Genitourinary Genitourinary ED: Denies dysuria, hematuria or urinary frequency Musculoskeletal Musculoskeletal: Denies arthralgias, back pain, myalgias or neck pain Integumentary Denies Abrasions or rash Neurologic Neurologic: Denies headache(s), paresthesias or weakness Endocrine Endocrinology: Denies cold intolerance or heat intolerance Hematologic/Lymphatic Hematologic/Lymphatic: Reports systems reviewed and no addt'l complaints, except as documented EXAM Physical Exam Const Vital Signs: 11/22/22 18:51 11/22/22 20:51 11/22/22 20:51 Temperature 97.4 F L Temperature Source Temporal Pulse Rate 115 H 81 Pulse Rate [Lying] Pulse Rate [Sitting (for 1 minute prior to obtaining)] Pulse Rate [Standing (for 1 minute prior to obtaining)] Respiratory Rate 24 H 18 Respiratory Effort Normal Non-Labored Blood Pressure 145/93 H Blood Pressure [Lying] Blood Pressure [Sitting (for 1 minute prior to obtaining)] Blood Pressure [Standing (for 1 minute prior to obtaining)] Blood Pressure Mean 110 Blood Pressure Mean [Lying] Blood Pressure Mean [Sitting (for 1 minute prior to obtaining)] Blood Pressure Mean [Standing (for 1 minute prior to obtaining)] Pulse Ox 100 Oxygen Delivery Method Room Air Room Air 11/22/22 20:56 Temperature Temperature Source Pulse Rate Pulse Rate [Lying] 72 Pulse Rate [Sitting (for 1 minute prior to obtaining)] 81 Pulse Rate [Standing (for 1 minute prior to obtaining)] 84 Respiratory Rate Respiratory Effort Blood Pressure Blood Pressure [Lying] 107/64 Blood Pressure [Sitting (for 1 minute prior to obtaining)] 118/84 H Blood Pressure [Standing (for 1 minute prior to obtaining)] 120/83 H Blood Pressure Mean Blood Pressure Mean [Lying] 78 Blood Pressure Mean [Sitting (for 1 minute prior to obtaining)] 95 Blood Pressure Mean [Standing (for 1 minute prior to obtaining)] 95 Pulse Ox Oxygen Delivery Method Positive well nourished, well developed and obese Constitutional Narrative: Orthostatic vital signs are normal. General Appearance ED: well developed and NAD; Negative for cyanotic, diaphoretic or pallor Nutritional Appearance: obese HEENT Reports moist mucous membranes HEENT Narrative: Head is atraumatic normocephalic. Ears normal. TMs normal. Nares patent without discharge. Posterior pharynx out erythema or exudate. Uvula is midline Eyes PERRL and EOMs intact bilaterally General Eye ED: Negative for pale conjunctiva or scleral icterus Neck no lymphadenopathy, supple and no JVD Chest Wall inspection of chest normal and palpation of chest normal Resp normal respiratory effort and clear to auscultation bilaterally Cardio regular rate, regular rhythm, S1 normal heart sound, S2 normal heart sound and no murmurs GI normal to inspection, nondistended, normoactive bowel sounds, non-tender, non-distended and no masses; Negative for hepatosplenomegaly Back/Spine no CVA tenderness Thoracic Spine / Upper Back: thoracic spinal tenderness Lumbar Spine / Lower Back: lumbar spinal tenderness Extremity normal to inspection General Extremety ED: Negative for edema or tenderness General Extremity: Negative for edema Neuro oriented x3, CN's II-XII intact bilaterally and no sensory deficits noted Sensorium / Orientation: alert Psych mental status grossly normal Skin no rashes or lesions noted, no wounds and skin turgor normal General Skin Exam: elasticity normal; Negative for jaundice or pallor MDM MDM MDM Narrative Medical decision making narrative: Vital signs per triage reveals a tachycardia. When I examined patient she was not tachycardic. EKG was obtained to assess for dysrhythmia and to determine there is any evidence to suggest preexcitation syndrome i.e. WPW, [place] long [place] syndrome etc. Also basic metabolic panel was obtained to assess potassium as well as renal function. History & Record Review Additional record(s) reviewed:: Prior inpatient record ( record was reviewed. June 2022.), Prior ED visit (Patient was seen for appendicitis in 2020.) and Prior labs Lab Data Labs: Laboratory Results - last 24 hr 11/22/22 20:30 Sodium 136 Potassium 3.8 Chloride 107 Carbon Dioxide 26.0 Anion Gap 3 L BUN 13 Creatinine 0.64 Estim Creat Clear Calc 98.75 Est GFR (MDRD) Af Amer 142 Est GFR (MDRD) Non-Af 118 BUN/Creatinine Ratio 20.4 H Glucose 84 Calcium 9.4 EKG Initial EKG: Attestation: I personally reviewed and interpreted this EKG as follows: Interpretation: Sinus Rhythm (Rate is 95. EKG is normal. LA interval is 142 ms. QRS duration 80 ms. QT duration 332 ms. [place] is normal) Treatment and Re-Evaluation :: Patient's monitor reveals a sinus rhythm with no ectopy. She was discharged to home. Discharge Plan Triage Chief Complaint: Palpitations ED Provider: Doni Grant Dx/Rx/DC Orders Clinical Impression: Palpitations, Tachycardia Instructions: ED Palpitations Prescriptions: No Action (DME) lancets Misc See Rx Instructions .ROUTE .MEDSUPPLY Qty: 100 6RF Rx Instructions: As directed testing in am and 2 hours after meals(4 times each day) (DME) blood-glucose meter [Blood Glucose Monitoring] Kit See Rx Instructions .Route Qty: 1 0RF Rx Instructions: As directed (DME) Blood Glucose Test Strip See Rx Instructions .Route Qty: 50 9RF Rx Instructions: As directed test in am and 2 hour post meals(4 times/day) Primary Care Provider: Care Physician,No Primary Referrals: Care Physician,No Primary [Primary Care Provider] - Chiara Negrete NP, MANAGER EM[employer]OY[employer] [Non-Staff] - 5-7 Days Disposition Disposition: Home, Self Care
[2022-11-22 22:24] VITALS: BP 106/62; PULSE 75; RESP 18; O2SAT 97
== END 2022-11-22 22:24 | disposition home or self-care (01) ==
PROVIDERS: Emergency Provider Emergency Medicine; Referring Provider Emergency Medicine; Visit Provider Emergency Medicine
DX: R00.2 Palpitations (principal); R00.0 Tachycardia, unspecified; E66.9 Obesity, unspecified; Z87.891 Personal history of nicotine dependence
CPT/HCPCS: 80048; 93005; 96360; 99285; J7030; A4216